=== PATIENT | male | born 1940 | race Caucasian/White ===

== ENCOUNTER → 2016-05-29 | Outpatient (CLI) | payer MEDICARE, OTHER ==
[2016-05-29 12:33] LABS: ANION GAP 9 (5-19); BLOOD UREA NITROGEN 15 mg/dL (7-20); CALCIUM 9.6 mg/dL (8.4-10.2); CARBON DIOXIDE 28 mmol/L (22-30); CHLORIDE 98 mmol/L (98-107); CREATININE RESULT 1.26 mg/dL (0.52-1.25); GLUCOSE 98 mg/dL (75-110); POTASSIUM 5.4 mmol/L (3.6-5.0); SODIUM 134.9 mmol/L (137-145)
== END ==
LOC: OD 11:00
PROVIDERS: ATTEND Physician Assistant
DX: E87.5 Hyperkalemia (principal)
CPT/HCPCS: 36415; 80048

== ENCOUNTER → 2016-06-04 | Outpatient (CLI) | payer MEDICARE, OTHER ==
[2016-06-04 16:05] LABS: ANION GAP 10 (5-19); BLOOD UREA NITROGEN 18 mg/dL (7-20); CARBON DIOXIDE 29 mmol/L (22-30); CHLORIDE 100 mmol/L (98-107); CREATININE RESULT 1.09 mg/dL (0.52-1.25); GLUCOSE 107 mg/dL (75-110); POTASSIUM 4.5 mmol/L (3.6-5.0); SODIUM 139.2 mmol/L (137-145)
== END ==
LOC: OD 14:58
PROVIDERS: ATTEND Physician Assistant
DX: E87.5 Hyperkalemia (principal)
CPT/HCPCS: 36415; 80048

== ENCOUNTER → 2016-08-29 | Outpatient (CLI) | payer MEDICARE, OTHER ==
[2016-08-29 12:20] LABS: ANION GAP 12 (5-19); BLOOD UREA NITROGEN 17 mg/dL (7-20); CALCIUM 9.6 mg/dL (8.4-10.2); CARBON DIOXIDE 23 mmol/L (22-30); CHLORIDE 102 mmol/L (98-107); CREATININE RESULT 1.14 mg/dL (0.52-1.25); GLUCOSE 106 mg/dL (75-110); POTASSIUM 4.9 mmol/L (3.6-5.0); SODIUM 136.6 mmol/L (137-145)
== END ==
LOC: OD 11:12
PROVIDERS: ATTEND Physician Assistant
DX: E87.5 Hyperkalemia (principal)
CPT/HCPCS: 36415; 80048

== ENCOUNTER 2017-08-21 21:37 | Inpatient (IN) | payer MEDICARE, OTHER ==
[2017-08-21 22:12] LABS: ABSOLUTE BASOPHILS # (AUTO) 0.1 10^3/uL (0.0-0.2); ABSOLUTE EOSINOPHILS # (AUTO) 0.5 10^3/uL (0.0-0.6); ABSOLUTE MONOCYTES (AUTO) 1.1 10^3/uL (0.1-1.4); BASOPHILS % (AUTO) 0.8 % (0-2); EOSINOPHILS % (AUTO) 4.4 % (0-6); HEMOGLOBIN 10.5 g/dL (13.5-17.0); LYMPHOCYTES % (AUTO) 18.9 % (13-45); MEAN CORPUSCULAR HEMOGLOBIN 33.2 pg (27.0-33.4); MEAN CORPUSCULAR HGB CONC 33.8 g/dL (32.0-36.0); MEAN CORPUSCULAR VOLUME 98 fl (80-97); MONOCYTES % (AUTO) 10.1 % (3-13); PLATELET COUNT 131 10^3/uL (150-450); RED BLOOD COUNT 3.16 10^6/uL (4.35-5.55); RED CELL DISTRIBUTION WIDTH 14.9 % (11.5-14.0); SEGMENTED NEUTROPHILS % (AUTO) 65.8 % (42-78); TOTAL CELLS COUNTED % (AUTO) 100 %; WHITE BLOOD COUNT 10.6 10^3/uL (4.0-10.5)
[2017-08-21 22:28] LABS: ALANINE AMINOTRANSFERASE 40 U/L (21-72); ALBUMIN 3.9 g/dL (3.5-5.0); ALKALINE PHOSPHATASE 43 U/L (38-126); ANION GAP 13 (5-19); ASPARTATE AMINO TRANSFERASE 40 U/L (17-59); BILIRUBIN,DIRECT 0.2 mg/dL (0.0-0.4); BILIRUBIN,TOTAL 0.4 mg/dL (0.2-1.3); BLOOD UREA NITROGEN 12 mg/dL (7-20); CARBON DIOXIDE 23 mmol/L (22-30); CHLORIDE 103 mmol/L (98-107); GLUCOSE 84 mg/dL (75-110); POTASSIUM 4.7 mmol/L (3.6-5.0); SODIUM 138.6 mmol/L (137-145); TOTAL PROTEIN 6.2 g/dL (6.3-8.2)
[2017-08-21] MEDS ORDERED: MIDAZOLAM 2 MG/2 ML INJ ONE ×2 (22:31→22:32)
[2017-08-21] MEDS ORDERED: DIPHENHYDRAMINE HCL 50 MG/ML VIAL ONE (22:31)
[2017-08-21] MEDS ORDERED: NALOXONE HCL INJ/PF 0.4 MG/1 ML SDV ONE (22:31)
[2017-08-21] MEDS ORDERED: EPINEPHRINE INJ 1 MG/10 ML DISP.SYRIN ONE ×2 (22:32→22:47)
[2017-08-21] MEDS ORDERED: FLUMAZENIL INJ 0.5 MG/5 ML VIAL ONE (22:32)
[2017-08-21] MEDS ORDERED: GLUCAGON,HUMAN RECOMB 1 MG INJ ONE (22:32)
[2017-08-21] MEDS ORDERED: FENTANYL CITRATE INJ/PF 100 MCG/2 ML AMPUL ONE (22:32)
[2017-08-21] MEDS ORDERED: NORMAL SALINE 1000 ML 500 ML IV ONE (22:38)
--- NOTE | 2017-08-21 23:33 | ER Document Report ---
ED General - General Chief Complaint: Rectal Bleeding Stated Complaint: BLOOD IN STOOL Time Seen by Provider: 08/21/17 22:37 TRAVEL OUTSIDE OF THE [place] IN LAST 30 DAYS: No - HPI Notes: 76-year-old male who presents on referral from his GI doctor for rectal bleeding. Of note, patient had a scheduled colonoscopy done this morning. He had possibly some type of polyp removal. This evening began to have 3 episodes of red blood in the toilet. [place] somewhat dizzy and lightheaded. Some mild mid abdominal pain. Nonradiating. Gradual onset. Sent in by his GI doctor to be "scope" and undergo colonoscopy in the ED and then be admitted. No other modifying factors, no other associated symptoms, no other provocative or palliative factors. - Related Data Allergies/Adverse Reactions: pneumococcal vaccine [Pneumococcal Vaccine] Allergy (Verified 03/02/14 16:28) RASH lisinopril [Lisinopril] Adverse Reaction (Intermediate, Verified 03/02/14 16:28) constant cough lorazepam [From Ativan] Adverse Reaction (Verified 02/02/16 21:07) Past Medical History - Social History Smoking Status: Never Smoker Chew tobacco use (# tins/day): No Frequency of alcohol use: Heavy Drug Abuse: None Family History: Reviewed & Not Pertinent Patient has suicidal ideation: No Patient has homicidal ideation: No - Past Medical History Cardiac Medical History: Reports: Hx Hypercholesterolemia - takes meds, Hx Hypertension - 35 yrs-takes meds Denies: Hx Atrial Fibrillation, Hx Congestive Heart Failure, Hx Coronary Artery Disease, Hx Heart Attack, Hx Peripheral Vascular Disease, Hx Heart Murmur Pulmonary Medical History: Denies: Hx COPD Neurological Medical History: Denies: Hx Cerebrovascular Accident, Hx Seizures Endocrine Medical History: Denies: Hx Diabetes Mellitus Type 1, Hx Diabetes Mellitus Type 2 Renal/ Medical History: Denies: Hx Benign Prostatic Hyperplasia, Hx End Stage Renal Disease, Hx Kidney Stones, Hx Peritoneal Dialysis Malignancy Medical History: Reports Hx Colorectal Cancer, Denies Hx Leukemia GI Medical History: Reports: Hx Gastroesophageal Reflux Disease - 15 yrs-takes Nexium, Hx Ulcer - Dx'ed with EGD > 3 years. Denies: Hx Crohn's Disease, Hx Hepatitis, Hx Hiatal Hernia, Hx Irritable Bowel, Hx Liver Failure, Hx Pancreatitis Musculoskeltal Medical History: Reports Hx Arthritis, Denies Hx Fibromyalgia, Denies Hx Multiple Sclerosis, Denies Hx Muscular Dystrophy Psychiatric Medical History: Reports: Hx Depression - Anxiety Denies: Hx Bipolar Disorder, Hx Dementia, Hx Post Traumatic Stress Disorder, Hx Schizophrenia Traumatic Medical History: Reports: Hx Fractures - LT leg as a child Infectious Medical History: Denies: Hx Hepatitis, Hx HIV Past Surgical History: Reports: Hx Appendectomy, Hx Bowel Surgery - colon resection , Hx Orthopedic Surgery - right knee. Denies: Hx Cholecystectomy, Hx Colostomy, Hx Coronary Artery Bypass Graft, Hx Gastric Bypass Surgery, Hx Herniorrhaphy, Hx Open Heart Surgery, Hx Pacemaker, Hx Tonsillectomy - Immunizations Immunizations up to date: Yes Hx Diphtheria, Pertussis, Tetanus Vaccination: Yes Hx Pneumococcal Vaccination: 03/31/07 Review of Systems - Review of Systems Notes: Review of systems as in the history of present illness, otherwise negative. Physical Exam - Vital signs Vitals: Pulse Resp BP Pulse Ox 64 10 L 131/56 H 99 08/21/17 23:05 08/21/17 23:05 08/21/17 23:05 08/21/17 23:05 - Notes Notes: General: Well developed . HEENT: Normocephalic, atraumatic. Pupils equal round reactive to light. No JVD. Chest: No trauma. Respiratory: Good air exchange, normal excursion. Cardiac: Regular rhythm. No murmurs or gallops. Abdomen: Soft, benign. Nondistended. Nontender. Back: No asymmetry or gross abnormality. Motor: Grossly normal power and tone. Neurologic: Alert, nonfocal. Cranial nerves II-12 are intact. Sensation intact. Vascular: Well perfused. Normal peripheral pulses. Skin: No petechiae or purpura. Course - Re-evaluation Re-evalutation: 08/21/17 23:32 I will email with the after mentioned symptoms. Certainly increase risk of critical GI bleed. He is not anticoagulated, stopped his antiplatelet agents 2 days before the procedure. We will proceed with basic laboratory evaluation, GI to perform bedside colonoscopy. 08/22/17 01:19 Labs reviewed, hemoglobin is mildly depressed. CBC is otherwise normal. Chemistries unremarkable. Patient underwent colonoscopy with control of bleeding. Blood was ordered by the GI doctor. Patient will be admitted by Dr. Steve for continued observation. - Vital Signs Vital signs: Temp Pulse Resp BP Pulse Ox 68 18 151/78 H 100 08/22/17 00:35 08/22/17 00:35 08/22/17 00:35 08/22/17 00:35 - Laboratory Result Diagrams: 08/21/17 21:57 08/21/17 21:57 Laboratory results interpreted by me: 08/21/17 08/21/17 08/21/17 21:57 21:57 21:57 WBC 10.6 H RBC 3.16 L Hgb 10.5 L Hct 31.0 L MCV 98 H RDW 14.9 H Plt Count 131 L Total Protein 6.2 L Crossmatch See Detail Discharge - Discharge Clinical Impression: GI bleed Qualifiers: GI bleed type/associated pathology: unspecified gastrointestinal hemorrhage type Qualified Code(s): K92.2 - Gastrointestinal hemorrhage, unspecified Condition: Serious Disposition: ADMITTED OBSERVATION Unit Admitted: ICU Referrals: IRVING STVEE MD [Primary Care Provider] - Follow up as needed
--- NOTE | 2017-08-22 01:07 | PDOC H&P ---
History of Present Illness Admission Date/PCP: IRVING STEVE MD History of Present Illness: BHARAT WALLACE JR is a 76 year old male patient was admitted to the emergency room with acute GI bleed. He had a colonoscopy this morning with removal of polyps from the cecum, ascending colon, transverse and the descending colon. He had 3 episodes of large amount of blood per rectum at home. He denies abdominal pain. He was on Plavix but was discontinued 5 days ago the patient also stopped his aspirin 5 days ago against advice. He was advised to use regular dose aspirin postoperatively today. His blood pressure was 110/70 upon presentation with a heart rate of 72. He was not in any discomfort. He underwent emergency colonoscopy in the emergency room with clipping Endo Clip in of the post polypectomy ulcer in the cecum, ascending colon and the transverse colon. There was no active bleeding at the end of the procedure. He became hypotensive during the procedure with his systolic blood pressures in the 80s. He also had a lot of blood in his colon and was still oozing from the cecal polypectomy site. He was given 2 units of blood urgently. Past Medical History Past Medical History: Reflux disease, hypertension, osteoarthritis, colon cancer in a polyp peduncle, ischemic colitis, hyperlipidemia, short segment Vallejo's esophagus, C. difficile colitis, coronary artery disease with stent placement in January 2016 , Cardiac Medical History: Reports: Hyperlipidema - takes meds, Hypertension - 35 yrs-takes meds Denies: Atrial Fibrillation, Congestive Heart Failure, Coronary Artery Disease, Myocardial Infarction, Peripheral Vascular Disease, Heart Murmur Pulmonary Medical History: Denies: Chronic Obstructive Pulmonary Disease (COPD) Neurological Medical History: Denies: Seizures Endocrine Medical History: Denies: Diabetes Mellitus Type 1, Diabetes Mellitus Type 2 Renal/ Medical History: Denies: End Stage Renal Disease Malignancy Medical History: Reports: Colorectal Cancer Denies: Breast Cancer, Cervical Cancer, Leukemia, Ovarian Cancer GI Medical History: Reports: Gastroesophageal Reflux Disease - 15 yrs-takes Nexium Denies: Crohn's Disease, Hepatitis, Hiatal Hernia Musculoskeltal Medical History: Reports: Arthritis Denies: Fibromyalgia Psychiatric Medical History: Reports: Depression - Anxiety Denies: Bipolar Disorder, Dementia, Post Traumatic Stress Disorder Hematology: Reports: Anemia - PRBC's x 2 units approx 12 years ago post " routine colonoscopy" Denies: Hemophilia, Sickle Cell Disease Infectious Medical History: Denies: HIV Past Surgical History Past Surgical History: Multiple colonoscopies including one today, left colectomy 1999, multiple EGDs, cataract surgery, coronary stent placement January 2016, left knee replacement Past Surgical History: Reports: Appendectomy, Orthopedic Surgery - right knee Denies: Cholecystectomy, Colostomy, Coronary Artery Bypass Graft, Gastric Bypass Surgery, Herniorrhaphy, Pacemaker, Tonsillectomy Social History Smoking Status: Never Smoker Frequency of Alcohol Use: Rare Hx Recreational Drug Use: No Drugs: None Hx Prescription Drug Abuse: No Family History Family History: Reviewed & Not Pertinent Parental Family History Reviewed: No Children Family History Reviewed: NA Sibling(s) Family History Reviewed.: NA Medication/Allergy Home Medications: Atenolol 100 mg PO BID 11/13/12 Losartan Potassium [Cozaar 100 mg Tablet] 100 mg PO QAM 03/02/14 Citalopram Hydrobromide [Celexa] 40 mg PO QAM 08/29/14 Esomeprazole Magnesium [Nexium] 40 mg PO QAM 08/29/14 Fexofenadine HCl [Roxana] 180 mg PO QAM 08/29/14 Trazodone HCl [Desyrel] 100 mg PO QHS 08/29/14 Simvastatin [Zocor 20 mg Tablet] 20 mg PO QPM 01/15/16 Aspirin [Aspirin 325 mg Tablet] 325 mg PO DAILY #0 tablet 01/31/16 Oxycodone HCl [Oxy-Ir 5 mg Tablet] 5 mg PO Q6HP PRN #0 tablet 01/31/16 Allergies/Adverse Reactions: pneumococcal vaccine [Pneumococcal Vaccine] Allergy (Verified 03/02/14 16:28) RASH lisinopril [Lisinopril] Adverse Reaction (Intermediate, Verified 03/02/14 16:28) constant cough lorazepam [From Ativan] Adverse Reaction (Verified 02/02/16 21:07) Review of Systems All systems: reviewed and no additional remarkable complaints except as stated Physical Exam Vital Signs: General: Patient is alert and looks well. HEENT: There is no pallor or jaundice. PERRLA. Oropharynx normal Respiratory: No chest deformity. No respiratory distress. Chest wall palpitation was unremarkable. Breath sounds were normal Cardiovascular: Heart sounds 1 and 2 normal with no murmurs. Abdominal: Not distended. Soft and nontender. Liver and spleen not palpable. No ascites demonstrated. Bowel sounds active. Rectal examination was deferred. Extremities: No edema Neurological: Alert and oriented x4. Grossly nonfocal. Normal speech Skin: No significant rash Psychological: Normal affect Results Laboratory Results: 08/21/17 21:57 08/21/17 21:57 08/21/17 08/21/17 08/21/17 21:57 21:57 21:57 WBC 10.6 H RBC 3.16 L Hgb 10.5 L Hct 31.0 L MCV 98 H MCH 33.2 MCHC 33.8 RDW 14.9 H Plt Count 131 L Seg Neutrophils % 65.8 Lymphocytes % 18.9 Monocytes % 10.1 Eosinophils % 4.4 Basophils % 0.8 Absolute Neutrophils 7.0 Absolute Lymphocytes 2.0 Absolute Monocytes 1.1 Absolute Eosinophils 0.5 Absolute Basophils 0.1 Sodium 138.6 Potassium 4.7 Chloride 103 Carbon Dioxide 23 Anion Gap 13 BUN 12 Creatinine 1.19 Est GFR ( Amer) > 60 Est GFR (Non-Af Amer) > 60 Glucose 84 Calcium 9.0 Total Bilirubin 0.4 AST 40 ALT 40 Alkaline Phosphatase 43 Total Protein 6.2 L Albumin 3.9 Lipase 117.0 Blood Type A POSITIVE Antibody Screen NEGATIVE 08/21/17 21:57 Troponin I < 0.012 Assessment & Plan - Diagnosis (1) Acute GI hemorrhage Is this a current diagnosis for this admission?: Yes Plan: Patient bled from his polypectomy ulcers and the bleeding was controlled while in the emergency room. He will be admitted to the hospital and observe for the next 36-48 hours. His H&H will be followed and further endoscopic management may be needed. I will keep him on a baby aspirin for now and resume his Plavix in 4-5 days. The risk of bleeding from Plavix outweigh the benefits at this time (2) Colon polyp Is this a current diagnosis for this admission?: No (3) Coronary artery disease Is this a current diagnosis for this admission?: Yes
[2017-08-22] MEDS ORDERED: IPRATROPIUM/ALBUTEROL 0.5-2.5 MG/3 ML AMPUL NEB PRN (01:14)
[2017-08-22] MEDS ORDERED: OXYCODONE-ACETAMINOPHEN 5-325 MG TABLET PO PRN (01:14)
[2017-08-22] MEDS ORDERED: ACETAMINOPHEN 325 MG TABLET PO PRN (01:14)
[2017-08-22] MEDS ORDERED: NORMAL SALINE 1000 ML 1,000 ML IV PRN (01:14)
[2017-08-22] MEDS ORDERED: GLUCAGON,HUMAN RECOMB 1 MG INJ IM PRN (01:19)
[2017-08-22] MEDS ORDERED: DEXTROSE 40% GEL 15 GM TUBE PO PRN ×2 (01:19)
[2017-08-22] MEDS ORDERED: INSULIN LISPRO 100 UNIT/ML 3 ML VIAL SUBCUT PRN (01:19)
[2017-08-22] MEDS ORDERED: DEXTROSE 50%-WATER 25 GM/50 ML DISP.SYRIN IV PRN ×2 (01:19)
[2017-08-22 01:49] LABS: ABSOLUTE BASOPHILS # (AUTO) 0.1 10^3/uL (0.0-0.2); ABSOLUTE EOSINOPHILS # (AUTO) 0.4 10^3/uL (0.0-0.6); ABSOLUTE LYMPHOCYTES (AUTO) 1.1 10^3/uL (0.5-4.7); ABSOLUTE MONOCYTES (AUTO) 0.9 10^3/uL (0.1-1.4); ABSOLUTE NEUT (AUTO) 7.4 10^3/uL (1.7-8.2); BASOPHILS % (AUTO) 0.5 % (0-2); EOSINOPHILS % (AUTO) 3.8 % (0-6); HEMATOCRIT 29.2 % (37.9-51.0); LYMPHOCYTES % (AUTO) 11.6 % (13-45); MEAN CORPUSCULAR HEMOGLOBIN 32.7 pg (27.0-33.4); MEAN CORPUSCULAR HGB CONC 34.3 g/dL (32.0-36.0); MEAN CORPUSCULAR VOLUME 95 fl (80-97); PLATELET COUNT 104 10^3/uL (150-450); RED BLOOD COUNT 3.07 10^6/uL (4.35-5.55); RED CELL DISTRIBUTION WIDTH 15.4 % (11.5-14.0); SEGMENTED NEUTROPHILS % (AUTO) 75.1 % (42-78); TOTAL CELLS COUNTED % (AUTO) 100 %; WHITE BLOOD COUNT 9.9 10^3/uL (4.0-10.5)
[2017-08-22] MEDS: LANSOPRAZOLE 15 MG TAB.RAP.DR PO SCH ×2 (05:44→17:05)
[2017-08-22 05:47] LABS: HEMATOCRIT 29.2 % (37.9-51.0); MEAN CORPUSCULAR HEMOGLOBIN 32.7 pg (27.0-33.4); MEAN CORPUSCULAR HGB CONC 34.3 g/dL (32.0-36.0); MEAN CORPUSCULAR VOLUME 96 fl (80-97); PLATELET COUNT 103 10^3/uL (150-450); RED BLOOD COUNT 3.06 10^6/uL (4.35-5.55); RED CELL DISTRIBUTION WIDTH 15.7 % (11.5-14.0); WHITE BLOOD COUNT 11.6 10^3/uL (4.0-10.5)
--- NOTE | 2017-08-22 07:20 | EKG REPORT ---
SEVERITY:- BORDERLINE ECG - SINUS RHYTHM BORDERLINE PROLONGED QT INTERVAL : Confirmed by: Satish Darby MD 22-Aug-2017 07:19:43
[2017-08-22] MEDS ORDERED: METOPROLOL SUCCINATE 50 MG TAB.SR.24H PO SCH (10:00)
--- NOTE | 2017-08-22 10:10 | OPERATIVE REPORT E ---
Operative Report NAME: BHARAT WALLACE : 1940 AGE: 76Y DATE OF SURGERY: 08/22/2017 ROOM: 314 PREOPERATIVE DIAGNOSIS: Acute rectal bleeding post colonoscopy. POSTOPERATIVE DIAGNOSIS: Postpolypectomy ulcers in the cecum, ascending, and the transverse colon. OPERATION: Colonoscopy with epinephrine injection and Endoclip placement. SURGEON: BLANKA HOROWITZ M.D. MEDICATION: Versed 2 mg, fentanyl 100 mcg IV push. TISSUE REMOVED OR ALTERED: None. PROCEDURE: After informed consent obtained from the patient, conscious sedation was achieved. The colonoscope was inserted into the rectum and advanced with some difficulty to the cecum. The patient has a tortuous and redundant colon. A 1-1.5 cm ulcer was noted in the cecum with large clots and oozing of blood. The clots were removed and there ulcer bed was injected with epinephrine 1:10,000, mixed half and half with normal saline. The ulcer was then clipped with five Endo-clips. Another 6 mm ulcer was noted in the proximal ascending colon with no active bleeding. This was clipped with two Endo-clips. A smaller ulcer was clipped once in the transverse colon. There was a large amount of blood and clots in the right side of the colon and some scattered over the rest of the colon. The patient's blood pressure went down to towards the end of the procedure to a systolic in the 80s. He was resuscitated with IV fluids and *------* transfusion. He received 1 unit of blood with a good response of his blood pressure postoperatively. He otherwise tolerated the procedure well. PLAN: We will observe for the next 36-48 hours in the hospital. He was started on mesalamine 800 mg twice a day. He will continue with a baby aspirin, but I will hold his Plavix for another 4-5 days. DICTATING PHYSICIAN: BLANKA HOROWITZ M.D. [id number] Y#: [id number] ID: [id number] JOB#: [id number] ACCT: [id number] cc:BLANKA HOROWITZ M.D. >
[2017-08-22] MEDS: MESALAMINE 400 MG CAPSULE.DR PO SCH ×2 (10:25→17:05)
[2017-08-22] MEDS ORDERED: LANSOPRAZOLE 30 MG TAB.RAP.DR PO ONE (12:00)
--- NOTE | 2017-08-22 12:31 | PDOC H&P ---
History of Present Illness Admission Date/PCP: 08/22/17 01:50 IRVING STEVE MD Patient complains of: GI bleed History of Present Illness: BHARAT WALLACE JR is a 76 year old male This is a 76-year-old male underwent for the colonoscopy by Dr. James and underwent for the polypectomy and patient started bleeding and patient at this point brought to the emergency department and Dr. James underwent for the emergency colonoscopy in the er And stop the bleeding Patient at this point Dr. James: Decided to admit for next 36hr continues to monitor When I saw the Patient on the floor and the patient is doing well patient's denied any abdominal pain no nausea no vomiting in patients wants to go home Patient at this point discussed with the Dr. James and suggest at least watch for next 24 hours Patient is currently not taking any blood pressure medications Aspirin and Plavix and currently hold the Plavix Dr. James suggested continues to baby aspirin Patient seen by the cardiology recently and suggest the patient's need of dual antiplatelet therapy to the main LAD lesion and patient had a stent placement in the [facility] in 2016 Again discussed with the patient is a noncompliance with the medications not taking the beta-nicolasa and not taking the statin Recent also have a PTSD and patient also currently see a neurology for the chronic back problems Also have a history of the cirrhosis and history of the alcoholism Patient's currently denied any chest pain denied any shortness of the breath Past Medical History Cardiac Medical History: Reports: Coronary Artery Disease, Hyperlipidema - takes meds, Hypertension - 35 yrs-takes meds Denies: Atrial Fibrillation, Congestive Heart Failure, Myocardial Infarction , Peripheral Vascular Disease, Heart Murmur Pulmonary Medical History: Reports: Chronic Obstructive Pulmonary Disease (COPD) Neurological Medical History: Denies: Seizures Endocrine Medical History: Denies: Diabetes Mellitus Type 1, Diabetes Mellitus Type 2 Renal/ Medical History: Reports: Chronic Kidney Disease Denies: End Stage Renal Disease Malignancy Medical History: Reports: Colorectal Cancer Denies: Breast Cancer, Cervical Cancer, Leukemia, Ovarian Cancer GI Medical History: Reports: Gastroesophageal Reflux Disease - 15 yrs-takes Nexium Denies: Crohn's Disease, Hepatitis, Hiatal Hernia Musculoskeltal Medical History: Reports: Arthritis Denies: Fibromyalgia Psychiatric Medical History: Reports: Depression - Anxiety Denies: Bipolar Disorder, Dementia, Post Traumatic Stress Disorder Hematology: Reports: Anemia - PRBC's x 2 units approx 12 years ago post " routine colonoscopy" Denies: Hemophilia, Sickle Cell Disease Infectious Medical History: Denies: HIV Past Surgical History Past Surgical History: Reports: Appendectomy, Orthopedic Surgery - right knee Denies: Cholecystectomy, Colostomy, Coronary Artery Bypass Graft, Gastric Bypass Surgery, Herniorrhaphy, Pacemaker, Tonsillectomy Social History Smoking Status: Never Smoker Frequency of Alcohol Use: Social Hx Recreational Drug Use: No Drugs: None Hx Prescription Drug Abuse: No - Advance Directive Resuscitation Status: Full Code Family History Family History: Reviewed & Not Pertinent Parental Family History Reviewed: Yes Children Family History Reviewed: Yes Sibling(s) Family History Reviewed.: Yes Medication/Allergy Home Medications: Aspirin [Aspirin EC] 81 mg PO DAILY 08/22/17 Atorvastatin Calcium [Lipitor 80 mg Tablet] 80 mg PO QHS 08/22/17 Budesonide/Formoterol Fumarate [Symbicort Hfa 160-4.5 Mcg Inhaler 6 gm] 2 puff IH Q12 08/22/17 Citalopram Hydrobromide [Celexa 40 mg Tablet] 60 mg PO DAILY 08/22/17 Clonazepam [Klonopin 2 mg Tablet] 2 mg PO DAILYP PRN 08/22/17 Clopidogrel Bisulfate [Clopidogrel] 75 mg PO DAILY 08/22/17 Ergocalciferol (Vitamin D2) [Drisdol 50,000 Unit (1.25MG) Capsule] 50,000 unit PO WE@1000 08/22/17 Fexofenadine HCl 180 mg PO DAILY 08/22/17 Gabapentin [Neurontin 300 mg Capsule] 300 mg PO Q8HP PRN 08/22/17 Metoprolol Succinate [Toprol XL 200 mg Tablet] 100 mg PO DAILY 08/22/17 Pantoprazole Sodium [Protonix] 40 mg PO DAILY 08/22/17 Polyvinyl Alcohol [Artificial Tears] 1 drop OU TID 08/22/17 Tiotropium Shobonier [Spiriva Respimat] 2 puff IH DAILY 08/22/17 Trazodone HCl [Desyrel] 100 mg PO HSP PRN 08/22/17 Allergies/Adverse Reactions: pneumococcal vaccine [Pneumococcal Vaccine] Allergy (Verified 03/02/14 16:28) RASH lisinopril [Lisinopril] Adverse Reaction (Intermediate, Verified 03/02/14 16:28) constant cough lorazepam [From Ativan] Adverse Reaction (Verified 02/02/16 21:07) Review of Systems Constitutional: ABSENT: chills, fever(s), headache(s), weight gain, weight loss Eyes: ABSENT: visual disturbances Ears: ABSENT: hearing changes Cardiovascular: ABSENT: chest pain, dyspnea on exertion, edema, orthropnea, palpitations Respiratory: ABSENT: cough, hemoptysis Gastrointestinal: ABSENT: abdominal pain, constipation, diarrhea, hematemesis, hematochezia, nausea, vomiting Genitourinary: ABSENT: dysuria, hematuria Musculoskeletal: ABSENT: joint swelling Integumentary: ABSENT: rash, wounds Neurological: ABSENT: abnormal gait, abnormal speech, confusion, dizziness, focal weakness, syncope Psychiatric: ABSENT: anxiety, depression, homidical ideation, suicidal ideation Endocrine: ABSENT: cold intolerance, heat intolerance, menstrual abnormalities, polydipsia, polyuria Hematologic/Lymphatic: ABSENT: easy bleeding, easy bruising, lymphadenopathy Physical Exam Vital Signs: Temp Pulse Resp BP Pulse Ox 97.9 F 90 16 178/90 H 98 08/22/17 07:22 08/22/17 11:47 08/22/17 11:47 08/22/17 08:19 08/22/17 07:22 Intake & Output 08/21/17 08/22/17 08/23/17 06:59 06:59 06:59 Intake Total 220 Output Total 500 Balance -280 Weight 120.5 kg General appearance: PRESENT: no acute distress, well-developed, well-nourished Head exam: PRESENT: atraumatic, normocephalic Eye exam: PRESENT: conjunctiva pink, EOMI, PERRLA. ABSENT: scleral icterus Ear exam: PRESENT: normal external ear exam Mouth exam: PRESENT: moist, tongue midline Neck exam: PRESENT: full ROM. ABSENT: carotid bruit, JVD, lymphadenopathy, thyromegaly Respiratory exam: PRESENT: clear to auscultation beatrice Cardiovascular exam: PRESENT: RRR. ABSENT: diastolic murmur, rubs, systolic murmur Pulses: PRESENT: normal dorsalis pedis pul, +2 pedal pulses bilateral Vascular exam: PRESENT: normal capillary refill GI/Abdominal exam: PRESENT: normal bowel sounds, soft. ABSENT: distended, guarding, mass, organolmegaly, rebound, tenderness Rectal exam: PRESENT: deferred Extremities exam: ABSENT: pedal edema Musculoskeletal exam: PRESENT: ambulatory Neurological exam: PRESENT: alert, awake, oriented to person, oriented to place , oriented to time, oriented to situation, CN II-XII grossly intact. ABSENT: motor sensory deficit Psychiatric exam: PRESENT: appropriate affect, normal mood. ABSENT: homicidal ideation, suicidal ideation Skin exam: PRESENT: dry, intact, warm. ABSENT: cyanosis, rash Results Laboratory Results: 08/22/17 04:30 08/22/17 04:30 WBC 11.6 H RBC 3.06 L Hgb 10.0 L Hct 29.2 L MCV 96 MCH 32.7 MCHC 34.3 RDW 15.7 H Plt Count 103 L Assessment & Plan - Diagnosis (1) Acute GI hemorrhage Is this a current diagnosis for this admission?: Yes Plan: Status post colonoscopy currently doing fair (2) Chronic obstructive pulmonary disease Qualifiers: COPD type: unspecified COPD Qualified Code(s): J44.9 - Chronic obstructive pulmonary disease, unspecified Is this a current diagnosis for this admission?: Yes Plan: Continues to current inhaler (3) Posttraumatic stress disorder Is this a current diagnosis for this admission?: Yes (4) Impaired fasting glucose Is this a current diagnosis for this admission?: Yes Plan: Patient's last hemoglobin A1c was 5.8 (5) Coronary artery disease Qualifiers: Coronary Disease-Associated Artery/Lesion type: unspecified vessel or lesion type Associated angina: without angina Is this a current diagnosis for this admission?: Yes Plan: Patient had a stent placement in [facility] 2016 and currently see a cardiology before the procedure of the [place] and suggest the dual antiplatelet therapy due to the LAD lesion currently hold the Plavix due to GI bleed continues to 81 mg baby aspirin and restart the Plavix next week (6) BPH (benign prostatic hypertrophy) with urinary obstruction Is this a current diagnosis for this admission?: Yes (7) HTN (hypertension) Qualifiers: Hypertension type: unspecified Qualified Code(s): I10 - Essential (primary ) hypertension Is this a current diagnosis for this admission?: Yes Plan: Patients will restart the beta-nicolasa (8) History of gastroesophageal reflux (GERD) Is this a current diagnosis for this admission?: Yes Plan: Continues to PPI (9) Chronic back pain Qualifiers: Back pain location: back pain in unspecified location Is this a current diagnosis for this admission?: Yes Plan: Patient's currently see a neurosurgery in taking the gabapentin (10) Chronic kidney disease Qualifiers: Chronic kidney disease stage: stage 2 (mild) Qualified Code(s): N18.2 - Chronic kidney disease, stage 2 (mild) Is this a current diagnosis for this admission?: Yes Plan: Currently stable - Time Time Spent: 30 to 50 Minutes Medications reviewed and adjusted accordingly: Yes Anticipated discharge: Home Within: within 24 hours - Inpatient Certification Medical Necessity: Need Close Monitoring Due to Risk of Patient Decompensation Post Hospital Care: D/C Customer Trainer Documentation - Plan Summary Plan Summary: Discussed with the patient about the all the hemoglobin result patient's very agitated to go home but as per discussed with Dr. James and suggest to keep it for the next 24 hours repeat the hemoglobin in the morning and if it remains stable patients can discharged home
[2017-08-22] MEDS ORDERED: GABAPENTIN 300 MG CAPSULE PO PRN (13:10)
[2017-08-22] MEDS ORDERED: CLONAZEPAM 1 MG TABLET PO PRN (13:48)
[2017-08-22 14:01] LABS: HEMATOCRIT 28.8 % (37.9-51.0); HEMOGLOBIN 9.7 g/dL (13.5-17.0); MEAN CORPUSCULAR HEMOGLOBIN 32.3 pg (27.0-33.4); MEAN CORPUSCULAR HGB CONC 33.8 g/dL (32.0-36.0); MEAN CORPUSCULAR VOLUME 96 fl (80-97); PLATELET COUNT 111 10^3/uL (150-450); RED BLOOD COUNT 3.01 10^6/uL (4.35-5.55); RED CELL DISTRIBUTION WIDTH 15.9 % (11.5-14.0); WHITE BLOOD COUNT 11.1 10^3/uL (4.0-10.5)
[2017-08-22] MEDS: POLYVINYL ALCOHOL 1.4% OPH SOLN 15 ML OU SCH (17:06)
[2017-08-22] MEDS: BUDESONIDE/FORMOTEROL 160-4.5 MCG 60 PUFF/6 GM MDI IH SCH (21:28)
[2017-08-22] MEDS ORDERED: ATORVASTATIN CALCIUM 80 MG TABLET PO SCH (22:00)
[2017-08-22] MEDS ORDERED: METOPROLOL SUCCINATE 50 MG TAB.SR.24H PO ONE (22:00)
[2017-08-22 22:22] LABS: HEMATOCRIT 27.9 % (37.9-51.0); HEMOGLOBIN 9.7 g/dL (13.5-17.0); MEAN CORPUSCULAR HGB CONC 34.7 g/dL (32.0-36.0); MEAN CORPUSCULAR VOLUME 95 fl (80-97); PLATELET COUNT 108 10^3/uL (150-450); RED BLOOD COUNT 2.93 10^6/uL (4.35-5.55); RED CELL DISTRIBUTION WIDTH 15.9 % (11.5-14.0); WHITE BLOOD COUNT 10.9 10^3/uL (4.0-10.5)
[2017-08-23 05:35] LABS: ANION GAP 7 (5-19); BLOOD UREA NITROGEN 9 mg/dL (7-20); CALCIUM 8.9 mg/dL (8.4-10.2); CARBON DIOXIDE 27 mmol/L (22-30); CHLORIDE 103 mmol/L (98-107); GLUCOSE 99 mg/dL (75-110); POTASSIUM 3.9 mmol/L (3.6-5.0); SODIUM 136.8 mmol/L (137-145)
[2017-08-23] MEDS: LANSOPRAZOLE 15 MG TAB.RAP.DR PO SCH (05:50)
[2017-08-23] MEDS ORDERED: LANSOPRAZOLE 30 MG TAB.RAP.DR PO SCH (06:00)
[2017-08-23] MEDS: MESALAMINE 400 MG CAPSULE.DR PO SCH (08:22)
[2017-08-23] MEDS: BUDESONIDE/FORMOTEROL 160-4.5 MCG 60 PUFF/6 GM MDI IH SCH (08:23)
[2017-08-23] MEDS: POLYVINYL ALCOHOL 1.4% OPH SOLN 15 ML OU SCH ×2 (08:24→12:48)
[2017-08-23] MEDS ORDERED: CITALOPRAM HYDROBROMIDE 60 MG PO SCH (10:00)
[2017-08-23] MEDS ORDERED: CITALOPRAM HYDROBROMIDE 20 MG TABLET PO SCH (10:00)
[2017-08-23] MEDS ORDERED: METOPROLOL SUCCINATE 100 MG PO SCH (10:00)
[2017-08-23] MEDS ORDERED: LORATADINE 10 MG TABLET PO SCH (10:00)
[2017-08-23] MEDS ORDERED: (PENDING PHARMACY ID) (Fexofenadine Hcl [Fexofenadine Hcl] 180 MG) PO SCH (10:00)
[2017-08-23] MEDS ORDERED: (PENDING PHARMACY ID) (Tiotropium Bromide [Spiriva Respimat] 2 PUFF) IH SCH (10:00)
[2017-08-23] MEDS ORDERED: ASPIRIN 81 MG TABLET, ENT COATED PO SCH (10:00)
[2017-08-23] MEDS ORDERED: METOPROLOL SUCCINATE 50 MG TAB.SR.24H PO SCH (10:00)
[2017-08-23 13:07] VITALS: BP 170/80
[2017-08-27] MEDS ORDERED: ERGOCALCIFEROL (VITAMIN D2) 50000 UNIT (1.25 MG) CAPSULE PO SCH (10:00)
== END 2017-08-23 15:10 | disposition left against medical advice (07) | DRG 920 ==
LOC: ER 21:37 → EH 08-22 01:50 → 3W 08-22 03:24
PROVIDERS: ADMIT Family Medicine; ATTEND Family Medicine
PROC: 0W3P8ZZ Control Bleeding in Gastrointestinal Tract, Via Natural or Artificial Opening Endoscopic (ICD-10-PCS; principal; 2017-08-22)
PROC: 3E0F73Z Introduction of Anti-inflammatory into Respiratory Tract, Via Natural or Artificial Opening (ICD-10-PCS; 2017-08-22)
PROC: 30233N1 Transfusion of Nonautologous Red Blood Cells into Peripheral Vein, Percutaneous Approach (ICD-10-PCS; 2017-08-22)
DX: K91.840 Postprocedural hemorrhage of a digestive system organ or structure following a digestive system procedure (principal); N13.8 Other obstructive and reflux uropathy; Y84.8 Other medical procedures as the cause of abnormal reaction of the patient, or of later complication, without mention of misadventure at the time of the procedure; I25.10 Atherosclerotic heart disease of native coronary artery without angina pectoris; E78.00 Pure hypercholesterolemia, unspecified; F43.10 Post-traumatic stress disorder, unspecified; F10.21 Alcohol dependence, in remission; K70.30 Alcoholic cirrhosis of liver without ascites; J44.9 Chronic obstructive pulmonary disease, unspecified; I12.9 Hypertensive chronic kidney disease with stage 1 through stage 4 chronic kidney disease, or unspecified chronic kidney disease; K21.9 Gastro-esophageal reflux disease without esophagitis; M19.90 Unspecified osteoarthritis, unspecified site; F32.9 Major depressive disorder, single episode, unspecified; F41.9 Anxiety disorder, unspecified; D64.9 Anemia, unspecified; R73.01 Impaired fasting glucose; N40.1 Benign prostatic hyperplasia with lower urinary tract symptoms; G89.29 Other chronic pain; M54.9 Dorsalgia, unspecified; N18.2 Chronic kidney disease, stage 2 (mild); K22.70 Barrett's esophagus without dysplasia; Z96.652 Presence of left artificial knee joint; Z91.14 Patient's other noncompliance with medication regimen; Z85.038 Personal history of other malignant neoplasm of large intestine; Z79.82 Long term (current) use of aspirin; Z79.899 Other long term (current) drug therapy; Z88.7 Allergy status to serum and vaccine; Z88.8 Allergy status to other drugs, medicaments and biological substances; Z95.5 Presence of coronary angioplasty implant and graft; Z90.49 Acquired absence of other specified parts of digestive tract
CPT/HCPCS: 36415; 36430; 45381; 45382; 80048; 80053; 82962; 83690; 84484; 85025; 85027; 86850; 86900; 86901; 86920; 93005; 93010; 99285; J0171; J1200; J1610; J2250; J2310; J3010; J3490; J7030; P9016

== ENCOUNTER → 2017-09-17 | Outpatient (CLI) | payer MEDICARE, OTHER ==
--- NOTE | 2017-09-17 15:42 | RADIOLOGY REPORT (SQ) ---
EXAM DESCRIPTION: LUMBAR SPINE W/FLEX/EXT COMPLETED DATE/TIME: 09/17/2017 10:29 am REASON FOR STUDY: LBP M54.5 LOW BACK PAIN COMPARISON: None. NUMBER OF VIEWS: 7 views TECHNIQUE: Lateral views were obtained in neutral, flexion, and extension. AP, both oblique, and co eric-down lateral views were also obtained. LIMITATIONS: None. FINDINGS: MINERALIZATION: Normal. SEGMENTATION: Normal. No transitional anatomy. ALIGNMENT: Levoscoliosis at L3-4. Minimal anterolisthesis of L4 on L5. FLEXION/EXTENSION: No instability. VERTEBRAE: Maintained height. No fracture or worrisome bone lesion. DISCS: All the lumbar disc spaces are narrowed to some degree. Marginal osteophytes are present at m ultiple levels. POSTERIOR ELEMENTS: Hypertrophic facet changes are present from L3-S1. HARDWARE: None in the spine. OTHER: No other significant finding. IMPRESSION: Scoliosis. Anterolisthesis of L4 on L5. Degenerative disc disease. Spondylosis. Face t arthropathy. No instability on flexion/ extension. TECHNICAL DOCUMENTATION: JOB ID: [id number]- All Rights Reserved Reading location - IP/workstation name: [email or web address]
== END ==
LOC: RAD 09:44
PROVIDERS: ATTEND Neurological Surgery
DX: M54.5 Low back pain (principal)
CPT/HCPCS: 72114

== ENCOUNTER → 2018-03-05 | Outpatient (CLI) | payer MEDICARE, OTHER ==
[2018-03-05 12:08] LABS: ABSOLUTE BASOPHILS # (AUTO) 0.1 10^3/uL (0.0-0.2); ABSOLUTE EOSINOPHILS # (AUTO) 0.3 10^3/uL (0.0-0.6); ABSOLUTE LYMPHOCYTES (AUTO) 1.2 10^3/uL (0.5-4.7); ABSOLUTE MONOCYTES (AUTO) 0.9 10^3/uL (0.1-1.4); BASOPHILS % (AUTO) 0.8 % (0-2); EOSINOPHILS % (AUTO) 3.4 % (0-6); HEMATOCRIT 39.5 % (37.9-51.0); HEMOGLOBIN 13.7 g/dL (13.5-17.0); MEAN CORPUSCULAR HEMOGLOBIN 34.5 pg (27.0-33.4); MEAN CORPUSCULAR HGB CONC 34.6 g/dL (32.0-36.0); MEAN CORPUSCULAR VOLUME 100 fl (80-97); MONOCYTES % (AUTO) 9.7 % (3-13); PLATELET COUNT 145 10^3/uL (150-450); RED BLOOD COUNT 3.97 10^6/uL (4.35-5.55); RED CELL DISTRIBUTION WIDTH 14.2 % (11.5-14.0); SEGMENTED NEUTROPHILS % (AUTO) 73.1 % (42-78); TOTAL CELLS COUNTED % (AUTO) 100 %; WHITE BLOOD COUNT 9.6 10^3/uL (4.0-10.5)
[2018-03-05 12:33] LABS: ANION GAP 7 (5-19); BLOOD UREA NITROGEN 19 mg/dL (7-20); CALCIUM 9.5 mg/dL (8.4-10.2); CARBON DIOXIDE 33 mmol/L (22-30); CHLORIDE 99 mmol/L (98-107); GLUCOSE 113 mg/dL (75-110); POTASSIUM 5.5 mmol/L (3.6-5.0)
== END ==
LOC: LAB 11:57
PROVIDERS: ATTEND Family Medicine
DX: E87.5 Hyperkalemia (principal); D72.829 Elevated white blood cell count, unspecified
CPT/HCPCS: 36415; 80048; 85025

== ENCOUNTER 2018-05-11 22:14 | Inpatient (IN) | payer MEDICARE, OTHER ==
[2018-05-11] MEDS ORDERED: IPRATROPIUM/ALBUTEROL 0.5-2.5 MG/3 ML AMPUL NEB ONE (22:29)
[2018-05-11] MEDS ORDERED: NORMAL SALINE 500 ML IV ONE ×2 (22:29→23:49)
[2018-05-11] MEDS ORDERED: ACETAMINOPHEN 325 MG TABLET PO ONE (22:33)
[2018-05-11] MEDS: MAGNESIUM SULFATE/D5W 1 GM/100 ML RTUPB IV SCH ×2 (22:46→23:58)
[2018-05-11 22:50] LABS: ABSOLUTE BASOPHILS # (AUTO) 0.1 10^3/uL (0.0-0.2); ABSOLUTE MONOCYTES (AUTO) 1.9 10^3/uL (0.1-1.4); ABSOLUTE NEUT (AUTO) 10.4 10^3/uL (1.7-8.2); BASOPHILS % (AUTO) 0.5 % (0-2); EOSINOPHILS % (AUTO) 0.3 % (0-6); HEMATOCRIT 37.8 % (37.9-51.0); HEMOGLOBIN 13.1 g/dL (13.5-17.0); MEAN CORPUSCULAR HEMOGLOBIN 33.6 pg (27.0-33.4); MEAN CORPUSCULAR HGB CONC 34.8 g/dL (32.0-36.0); MEAN CORPUSCULAR VOLUME 97 fl (80-97); MONOCYTES % (AUTO) 12.9 % (3-13); PLATELET COUNT 132 10^3/uL (150-450); RED BLOOD COUNT 3.91 10^6/uL (4.35-5.55); RED CELL DISTRIBUTION WIDTH 13.7 % (11.5-14.0); SEGMENTED NEUTROPHILS % (AUTO) 72.3 % (42-78); TOTAL CELLS COUNTED % (AUTO) 100 %; WHITE BLOOD COUNT 14.4 10^3/uL (4.0-10.5)
[2018-05-11 22:52] LABS: VENOUS BLOOD BASE EXCESS 0.9 mmol/L; VENOUS BLOOD HCO3 26.4 mmol/L (20-32); VENOUS BLOOD PCO2 45.2 mmHg (35-63); VENOUS BLOOD PH 7.38 (7.30-7.42)
[2018-05-11 23:13] LABS: ALANINE AMINOTRANSFERASE 45 U/L (21-72); ALBUMIN 4.7 g/dL (3.5-5.0); ALKALINE PHOSPHATASE 54 U/L (38-126); ANION GAP 11 (5-19); ASPARTATE AMINO TRANSFERASE 61 U/L (17-59); BILIRUBIN,DIRECT 0.2 mg/dL (0.0-0.4); BILIRUBIN,TOTAL 0.7 mg/dL (0.2-1.3); BLOOD UREA NITROGEN 17 mg/dL (7-20); CALCIUM 9.2 mg/dL (8.4-10.2); CARBON DIOXIDE 26 mmol/L (22-30); CHLORIDE 98 mmol/L (98-107); GLUCOSE 97 mg/dL (75-110); POTASSIUM 3.8 mmol/L (3.6-5.0); SODIUM 135.4 mmol/L (137-145); TOTAL PROTEIN 7.3 g/dL (6.3-8.2)
[2018-05-11 23:14] LABS: ALCOHOL < 10 mg/dL (NONE DETECTED)
--- NOTE | 2018-05-11 23:20 | EKG REPORT ---
SEVERITY:- ABNORMAL ECG - SINUS TACHYCARDIA ABNRM R PROG, CONSIDER ASMI OR LEAD PLACEMENT BORDERLINE T ABNORMALITIES, LATERAL LEADS : Confirmed by: Natalia Almaraz MD 11-May-2018 23:20:10
--- NOTE | 2018-05-11 23:26 | RADIOLOGY REPORT (SQ) ---
XR CHEST 1 VIEW HISTORY: dyspnea. COMPARISON: None. FINDINGS: The heart size is normal. There is atelectasis at the left lung base. No pleural effusions or pneumothorax is seen. No acute bony findings. IMPRESSION: No evidence of acute cardiopulmonary disease.
--- NOTE | 2018-05-11 23:27 | RADIOLOGY REPORT (SQ) ---
CT HEAD WITHOUT IV CONTRAST HISTORY: Headache. COMPARISON: None. TECHNIQUE: CT scan of the brain without IV contrast. This exam was performed according to our departmental dose-optimization program, which includes automated exposure control, adjustment of the mA and/or kV according to patient size and/or use of iterative reconstruction technique. FINDINGS: The ventricles, cisterns, and sulci are unremarkable. No focal white matter lesions are seen. No evidence of acute infarction, intracranial hemorrhage, extra-axial fluid collection, or midline shift. No air-fluid levels are seen in the paranasal sinuses to suggest acute sinusitis. No depressed skull fracture. IMPRESSION: No acute intracranial findings.
--- NOTE | 2018-05-11 23:48 | ER Document Report ---
ED General - General Chief Complaint: Shortness Of Breath Stated Complaint: DIFIICULTY BREATHING Time Seen by Provider: 05/11/18 22:21 Notes: Patient is a 77-year-old male presents with complaint of difficulty breathing. He was at a bar and started to feel unwell and dizzy and lightheaded and says he almost passed out but did not pass out. He did fall to the floor. He denies any injuries. He blood thinning medications. He has a history of coronary disease. He is a former smoker. He says even though he was at a bar he only had 2 beers and that was much early in the night. He says he is not intoxicated and drunk and thinks that has nothing to do with what happened tonight. No recent infections. He does have history of some COPD. Paramedics give him Solu-Medrol in route. They also given DuoNeb treatment. He still wheezing but says a DuoNeb treatment did help some. TRAVEL OUTSIDE OF THE [place] IN LAST 30 DAYS: No - Related Data Allergies/Adverse Reactions: pneumococcal vaccine [Pneumococcal Vaccine] Allergy (Verified 03/02/14 16:28) RASH lisinopril [Lisinopril] Adverse Reaction (Intermediate, Verified 03/02/14 16:28) constant cough lorazepam [From Ativan] Adverse Reaction (Verified 02/02/16 21:07) Past Medical History - Social History Smoking Status: Former Smoker Frequency of alcohol use: Occasional Drug Abuse: None Family History: Reviewed & Not Pertinent Patient has suicidal ideation: No Patient has homicidal ideation: No - Past Medical History Cardiac Medical History: Reports: Hx Coronary Artery Disease, Hx Hypercholesterolemia - takes meds, Hx Hypertension - 36 yrs-takes meds Denies: Hx Atrial Fibrillation, Hx Congestive Heart Failure, Hx Heart Attack, Hx Peripheral Vascular Disease, Hx Heart Murmur Pulmonary Medical History: Reports: Hx COPD Neurological Medical History: Denies: Hx Cerebrovascular Accident, Hx Seizures Endocrine Medical History: Denies: Hx Diabetes Mellitus Type 1, Hx Diabetes Mellitus Type 2 Renal/ Medical History: Denies: Hx Benign Prostatic Hyperplasia, Hx End Stage Renal Disease, Hx Kidney Stones, Hx Peritoneal Dialysis Malignancy Medical History: Reports Hx Colorectal Cancer, Denies Hx Leukemia GI Medical History: Reports: Hx Gastroesophageal Reflux Disease - 16 yrs-takes Nexium, Hx Ulcer - Dx'ed with EGD > 3 years. Denies: Hx Crohn's Disease, Hx Hepatitis, Hx Hiatal Hernia, Hx Irritable Bowel, Hx Liver Failure, Hx Pancreatitis Musculoskeletal Medical History: Reports Hx Arthritis, Denies Hx Fibromyalgia, Denies Hx Multiple Sclerosis, Denies Hx Muscular Dystrophy Psychiatric Medical History: Reports: Hx Depression - Anxiety Denies: Hx Bipolar Disorder, Hx Dementia, Hx Post Traumatic Stress Disorder, Hx Schizophrenia Traumatic Medical History: Reports: Hx Fractures - LT leg as a child Infectious Medical History: Denies: Hx Hepatitis, Hx HIV Past Surgical History: Reports: Hx Appendectomy, Hx Bowel Surgery - colon resection , Hx Orthopedic Surgery - right knee. Denies: Hx Cholecystectomy, Hx Colostomy, Hx Coronary Artery Bypass Graft, Hx Gastric Bypass Surgery, Hx Herniorrhaphy, Hx Open Heart Surgery, Hx Pacemaker, Hx Tonsillectomy - Immunizations Immunizations up to date: Yes Hx Diphtheria, Pertussis, Tetanus Vaccination: Yes Hx Pneumococcal Vaccination: 03/31/07 Review of Systems - Review of Systems Notes: My Normal Review Basic REVIEW OF SYSTEMS: CONSTITUTIONAL : Fever upon arrival. EENT: Denies eye, ear, throat, or mouth pain or symptoms. Denies nasal or sinus congestion. CARDIOVASCULAR: Denies chest pain. RESPIRATORY: Difficulty breathing and wheezing GASTROINTESTINAL: Denies abdominal pain. Denies nausea, vomiting, or diarrhea. GENITOURINARY: Denies difficulty urinating, painful urination, burning, frequency, or blood in urine. MUSCULOSKELETAL: Denies neck or back pain or joint pain or swelling. SKIN: Denies rash or skin lesions. NEUROLOGICAL: Denies altered mental status or loss of consciousness. Denies headache. Denies weakness or paralysis or loss of use of either side. Denies problems with gait or speech. Denies sensory or motor loss. ALL OTHER SYSTEMS REVIEWED AND NEGATIVE. Physical Exam - Vital signs Vitals: Pulse Ox 98 05/11/18 22:19 - Notes Notes: General Appearance: Well nourished, alert, cooperative, moderate acute distress, no obvious discomfort. Weak appearing Vitals: reviewed, See vital signs table. Head: no swelling or tenderness to the head Eyes: PERRL, EOMI, Conjuctiva clear Mouth: No decreasd moisture Throat: No tonsillar inflammation, No airway obstruction, No lymphadenopathy Neck: Supple, no neck tenderness, No thyromegaly Lungs: diffuse wheezing, No rales, No rhonci, mild accessory muscle use, good air exchange bilaterally. Heart: Tachycardic rate, Regular rythm, No murmur, no rub Abdomen: Normal BS, soft, No rigidity, No abdominal tenderness, No guarding, no rebound, no abdominal masses, no organomegaly Extremities: strength 5/5 in all extremities, good pulses in all extremities, no swelling or tenderness in the extremities, no edema. Skin: warm, dry, appropriate color, no rash Neuro: speech clear, oriented x 3, normal affect, responds appropriately to questions. Course - Re-evaluation Re-evalutation: 05/11/18 23:48 on reevaluation patient's lung pratt are clear and his wheezing is improved. He still slightly tachycardic. I am waiting the results of his blood work. 05/12/18 01:17 Patient's lung pratt continue to be him improved on auscultation however he still looks weak and little bit short of breath. I had the medicine tech standing and walking. His oxygen saturation went down to 80% and his heart rate went up to 134 and became very short of breath. I therefore placed him back on oxygen. I will give another breathing treatment. I do not feel that he will be able to go home tonight. His flu swab is negative however we have a lot of pus negative flu swabs and his symptoms with sudden onset of fever and congestion and difficulty breathing very well could be related to the flu and therefore I will treat him with Tamiflu. I will call his primary care doctor, Dr. Resendez, to discuss admission. 05/12/18 03:42 I did discuss case with Dr. Resendez who agrees to admit the patient. He recommends admission to the [facility]. Dictation of this chart was performed using voice recognition software; therefore, there may be some unintended grammatical errors. - Vital Signs Vital signs: Temp Pulse Resp BP Pulse Ox 97.4 F 21 H 165/74 H 94 05/12/18 02:07 05/12/18 01:03 05/12/18 01:03 05/12/18 01:03 - Laboratory Result Diagrams: 05/11/18 22:30 05/11/18 22:30 Laboratory results interpreted by me: 05/11/18 05/11/18 22:30 22:30 WBC 14.4 H RBC 3.91 L Hgb 13.1 L Hct 37.8 L MCH 33.6 H Plt Count 132 L Absolute Neutrophils 10.4 H Absolute Monocytes 1.9 H Sodium 135.4 L Creatinine 1.37 H Est GFR (Non-Af Amer) 51 L AST 61 H Discharge - Discharge Clinical Impression: Dyspnea Qualifiers: Dyspnea type: unspecified Qualified Code(s): R06.00 - Dyspnea, unspecified Fever Qualifiers: Fever type: unspecified Qualified Code(s): R50.9 - Fever, unspecified Condition: Stable Disposition: ADMITTED OBSERVATION Admitting Provider: Resendez Unit Admitted: [facility]
[2018-05-11 23:54] LABS: A TYPE INFLUENZA AG NEGATIVE (NEGATIVE); B INFLUENZA AG NEGATIVE (NEGATIVE)
[2018-05-12] MEDS ORDERED: ALBUTEROL SULFATE 0.083% NEB 2.5 MG/3 ML AMPUL NEB ONE (01:17)
[2018-05-12] MEDS ORDERED: OSELTAMIVIR PHOSPHATE 75 MG CAPSULE PO ONE (01:18)
[2018-05-12] MEDS ORDERED: ACETAMINOPHEN 325 MG TABLET PO PRN (01:23)
[2018-05-12] MEDS ORDERED: CEFEPIME 1 GM/D5W RTU 1 GM/50 ML RTUPB IV ONE (02:00)
[2018-05-12 02:45] LABS: CREATINE KINASE MB 10.2 ng/mL (<4.55); TROPONIN I 0.018 ng/mL
[2018-05-12] MEDS: NORMAL SALINE 1000 ML 1,000 ML IV PRN ×2 (02:50→23:32)
[2018-05-12] MEDS: IPRATROPIUM/ALBUTEROL 0.5-2.5 MG/3 ML AMPUL NEB SCH ×5 (04:32→20:50)
[2018-05-12] MEDS: METHYLPREDNISOLONE INJ 40 MG/1 ML SDV IV SCH ×3 (05:54→22:05)
[2018-05-12 07:35] LABS: TROPONIN I 0.02 ng/mL
[2018-05-12] MEDS ORDERED: (PENDING PHARMACY ID) (Trazodone Hcl [Desyrel] 100 MG) PO PRN (08:06)
[2018-05-12] MEDS ORDERED: TRAZODONE HCL 50 MG TABLET PO PRN (08:25)
--- NOTE | 2018-05-12 09:06 | PDOC H&P ---
History of Present Illness Admission Date/PCP: 05/12/18 01:31 IRVING STEVE MD Patient complains of: Difficulty in breathing History of Present Illness: BHARAT WALLACE JR is a 77 year old male 77-year-old male with a history of the COPD history of the coronary artery disease status post stent placement history of the impaired fasting glucose history of alcoholism and multiple other comorbidity was drinking at the bar yesterday and the patient suddenly feel pass out but did not pass out and patient's was brought to the emergency department with the patient initial workup included a head CT was negative but patient has significant wheezing and COPD acute exacerbations and ER physicians called to admit the patient's Patient is received IV Solu-Medrol and also the Tamiflu because of the flulike symptoms given the flu test is negative Patient's when I saw in the ER denied any chest pain Patient denied any smoking history Patient currently see the [facility] cardiology status post stent placement in 2016 Patient continues to drink alcohol every day Patient denied any headache Past Medical History Cardiac Medical History: Reports: Coronary Artery Disease, Hyperlipidema - takes meds, Hypertension - 36 yrs-takes meds Denies: Atrial Fibrillation, Congestive Heart Failure, Myocardial Infarction, Peripheral Vascular Disease, Heart Murmur Pulmonary Medical History: Reports: Chronic Obstructive Pulmonary Disease (COPD) Neurological Medical History: Denies: Seizures Endocrine Medical History: Denies: Diabetes Mellitus Type 1, Diabetes Mellitus Type 2 Renal/ Medical History: Denies: End Stage Renal Disease Malignancy Medical History: Reports: Colorectal Cancer Denies: Breast Cancer, Cervical Cancer, Leukemia, Ovarian Cancer GI Medical History: Reports: Gastroesophageal Reflux Disease - 16 yrs-takes Nexium Denies: Crohn's Disease, Hepatitis, Hiatal Hernia Musculoskeltal Medical History: Reports: Arthritis Denies: Fibromyalgia Psychiatric Medical History: Reports: Depression - Anxiety Denies: Bipolar Disorder, Dementia, Post Traumatic Stress Disorder Hematology: Reports: Anemia - PRBC's x 2 units approx 12 years ago post "routine colonoscopy" Denies: Hemophilia, Sickle Cell Disease Infectious Medical History: Denies: HIV Past Surgical History Past Surgical History: Reports: Appendectomy, Orthopedic Surgery - right knee Denies: Cholecystectomy, Colostomy, Coronary Artery Bypass Graft, Gastric Bypass Surgery, Herniorrhaphy, Pacemaker, Tonsillectomy Social History Smoking Status: Former Smoker Frequency of Alcohol Use: Social Hx Recreational Drug Use: No Drugs: None Hx Prescription Drug Abuse: No Family History Family History: Reviewed & Not Pertinent Parental Family History Reviewed: Yes Children Family History Reviewed: Yes Sibling(s) Family History Reviewed.: Yes Medication/Allergy Home Medications: Aspirin [Aspirin EC] 81 mg PO DAILY 08/22/17 Atorvastatin Calcium [Lipitor 80 mg Tablet] 80 mg PO QHS 08/22/17 Budesonide/Formoterol Fumarate [Symbicort Hfa 160-4.5 Mcg Inhaler 6 gm] 2 puff IH Q12 08/22/17 Citalopram Hydrobromide [Celexa 40 mg Tablet] 60 mg PO DAILY 08/22/17 Clonazepam [Klonopin 2 mg Tablet] 2 mg PO DAILY 08/22/17 Clopidogrel Bisulfate [Clopidogrel] 75 mg PO DAILY 08/22/17 Fexofenadine HCl 180 mg PO DAILY 08/22/17 Metoprolol Succinate [Toprol XL 200 mg Tablet] 100 mg PO DAILY 08/22/17 Pantoprazole Sodium [Protonix] 40 mg PO DAILY 08/22/17 Tiotropium [place] [Spiriva Respimat] 2 puff IH DAILY 08/22/17 Trazodone HCl [Desyrel] 100 mg PO HSP PRN 08/22/17 Allergies/Adverse Reactions: pneumococcal vaccine [Pneumococcal Vaccine] Allergy (Verified 03/02/14 16:28) RASH lisinopril [Lisinopril] Adverse Reaction (Intermediate, Verified 03/02/14 16:28) constant cough lorazepam [From Ativan] Adverse Reaction (Verified 02/02/16 21:07) Review of Systems Constitutional: PRESENT: chills, fever(s). ABSENT: headache(s), weight gain, weight loss Eyes: ABSENT: visual disturbances Ears: ABSENT: hearing changes Cardiovascular: ABSENT: chest pain, dyspnea on exertion, edema, orthropnea, palpitations Respiratory: PRESENT: cough, dyspnea. ABSENT: hemoptysis Gastrointestinal: ABSENT: abdominal pain, constipation, diarrhea, hematemesis, hematochezia, nausea, vomiting Genitourinary: ABSENT: dysuria, hematuria Musculoskeletal: ABSENT: joint swelling Integumentary: ABSENT: rash, wounds Neurological: ABSENT: abnormal gait, abnormal speech, confusion, dizziness, foca l weakness, syncope Psychiatric: ABSENT: anxiety, depression, homidical ideation, suicidal ideation Endocrine: ABSENT: cold intolerance, heat intolerance, menstrual abnormalities, polydipsia, polyuria Hematologic/Lymphatic: ABSENT: easy bleeding, easy bruising, lymphadenopathy Physical Exam Vital Signs: Temp Pulse Resp BP Pulse Ox 97.4 F 89 19 138/63 H 93 05/12/18 05:55 05/12/18 07:38 05/12/18 08:01 05/12/18 08:01 05/12/18 08:01 Intake & Output 05/11/18 05/12/18 05/13/18 06:59 06:59 06:59 Intake Total 1250 Balance 1250 Weight 117.934 kg General appearance: PRESENT: no acute distress, well-developed, well-nourished Head exam: PRESENT: atraumatic, normocephalic Eye exam: PRESENT: conjunctiva pink, EOMI, PERRLA. ABSENT: scleral icterus Ear exam: PRESENT: normal external ear exam Mouth exam: PRESENT: moist, tongue midline Neck exam: PRESENT: full ROM. ABSENT: carotid bruit, JVD, lymphadenopathy, thyromegaly Respiratory exam: PRESENT: wheezes Cardiovascular exam: PRESENT: RRR. ABSENT: diastolic murmur, rubs, systolic murmur Vascular exam: PRESENT: normal capillary refill GI/Abdominal exam: PRESENT: normal bowel sounds, soft. ABSENT: distended, g uarding, mass, organolmegaly, rebound, tenderness Rectal exam: PRESENT: deferred Musculoskeletal exam: PRESENT: ambulatory Neurological exam: PRESENT: alert, awake, oriented to person, oriented to place, oriented to time, oriented to situation, CN II-XII grossly intact. ABSENT: motor sensory deficit Psychiatric exam: PRESENT: appropriate affect, normal mood. ABSENT: homicidal ideation, suicidal ideation Skin exam: PRESENT: dry, intact, warm. ABSENT: cyanosis, rash Results Laboratory Results: 05/11/18 22:30 05/11/18 22:30 05/11/18 05/11/18 05/11/18 22:30 22:30 22:30 WBC 14.4 H RBC 3.91 L Hgb 13.1 L Hct 37.8 L MCV 97 MCH 33.6 H MCHC 34.8 RDW 13.7 Plt Count 132 L Seg Neutrophils % 72.3 Lymphocytes % 14.0 Monocytes % 12.9 Eosinophils % 0.3 Basophils % 0.5 Absolute Neutrophils 10.4 H Absolute Lymphocytes 2.0 Absolute Monocytes 1.9 H Absolute Eosinophils 0.0 Absolute Basophils 0.1 VBG pH 7.38 VBG pCO2 45.2 VBG HCO3 26.4 VBG Base Excess 0.9 Sodium 135.4 L Potassium 3.8 Chloride 98 Carbon Dioxide 26 Anion Gap 11 BUN 17 Creatinine 1.37 H Est GFR ( Amer) > 60 Est GFR (Non-Af Amer) 51 L Glucose 97 Calcium 9.2 Total Bilirubin 0.7 AST 61 H ALT 45 Alkaline Phosphatase 54 Total Protein 7.3 Albumin 4.7 05/11/18 05/12/18 05/12/18 22:30 02:00 02:00 Creatine Kinase 801 H CK-MB (CK-2) 10.20 H Troponin I 0.013 0.018 05/12/18 05/12/18 07:01 07:01 Creatine Kinase 609 H CK-MB (CK-2) 10.00 H Troponin I 0.020 Impressions: Chest X-Ray 05/11/18 22:28 IMPRESSION: No evidence of acute cardiopulmonary disease. Head CT 05/11/18 22:29 IMPRESSION: No acute intracranial findings. Assessment & Plan - Diagnosis (1) Dyspnea Qualifiers: Dyspnea type: unspecified Qualified Code(s): R06.00 - Dyspnea, unspecified Is this a current diagnosis for this admission?: Yes Plan: Most likely from COPD acute exacerbations (2) Fever Qualifiers: Fever type: unspecified Qualified Code(s): R50.9 - Fever, unspecified Is this a current diagnosis for this admission?: Yes Plan: The blood culture urine culture continues to Tamiflu (3) Alcohol abuse Is this a current diagnosis for this admission?: Yes Plan: Put the patient on alcohol withdrawal protocol (4) BPH (benign prostatic hypertrophy) with urinary obstruction Is this a current diagnosis for this admission?: Yes (5) Chronic back pain Is this a current diagnosis for this admission?: Yes (6) Chronic kidney disease Qualifiers: Chronic kidney disease stage: stage 2 (mild) Is this a current diagnosis for this admission?: Yes Plan: all stable (7) Chronic obstructive pulmonary disease Qualifiers: COPD type: unspecified COPD Is this a current diagnosis for this admission?: Yes Plan: With acute exacerbations We will start the patient on the Solu-Medrol DuoNeb respiratory treatment (8) Impaired fasting glucose Is this a current diagnosis for this admission?: Yes Plan: Since last hemoglobin A1c is less than 6 We will continue sliding scale while patient in the steroid (9) Posttraumatic stress disorder Is this a current diagnosis for this admission?: Yes (10) Coronary artery disease Qualifiers: Coronary Disease-Associated Artery/Lesion type: unspecified vessel or lesion type Is this a current diagnosis for this admission?: Yes Plan: Rule out acute coronary syndromes - Time Time Spent: 30 to 50 Minutes Medications reviewed and adjusted accordingly: Yes Anticipated discharge: Home Within: Other - Inpatient Certification Based on my medical assessment, after consideration of the patient's comorbidities, presenting symptoms, or acuity I expect that the services needed warrant INPATIENT care.: Yes I certify that my determination is in accordance with my understanding of Medicare's requirements for reasonable and necessary INPATIENT services [42 CFR 412.3e].: Yes Medical Necessity: Significant Comorbidiites Make Outpatient Treatment Too Risky, Need Close Monitoring Due to Risk of Patient Decompensation, Need for IV Antibiotics Post Hospital Care: D/C Tester [employer] Documentation - Plan Summary Plan Summary: Admitting IMCU See other MD orders
[2018-05-12] MEDS: CITALOPRAM HYDROBROMIDE 20 MG TABLET PO SCH (09:53)
[2018-05-12] MEDS: CLOPIDOGREL BISULFATE 75 MG TABLET PO SCH (09:54)
[2018-05-12] MEDS: THIAMINE HCL 100 MG TABLET PO SCH (09:54)
[2018-05-12] MEDS: LORATADINE 10 MG TABLET PO SCH (09:55)
[2018-05-12] MEDS: METOPROLOL SUCCINATE 50 MG TAB.SR.24H PO SCH (09:55)
[2018-05-12] MEDS: CLONAZEPAM 1 MG TABLET PO SCH (09:55)
[2018-05-12] MEDS: ASPIRIN 81 MG TABLET, ENT COATED PO SCH (09:55)
[2018-05-12] MEDS: OSELTAMIVIR PHOSPHATE 75 MG CAPSULE PO SCH ×2 (09:56→19:23)
[2018-05-12] MEDS: DOCUSATE SODIUM 100 MG CAPSULE PO SCH ×2 (09:56→19:23)
[2018-05-12] MEDS: ENOXAPARIN SODIUM INJ 40 MG/0.4 ML DISP.SYRIN SUBCUT SCH (09:57)
[2018-05-12] MEDS: CEFEPIME 1 GM/D5W RTU 1 GM/50 ML RTUPB IV SCH ×2 (09:57→22:06)
[2018-05-12] MEDS ORDERED: METOPROLOL SUCCINATE 100 MG PO SCH (10:00)
[2018-05-12] MEDS ORDERED: (PENDING PHARMACY ID) (Fexofenadine Hcl [Fexofenadine Hcl] 180 MG) PO SCH (10:00)
[2018-05-12] MEDS ORDERED: CITALOPRAM HYDROBROMIDE 60 MG PO SCH (10:00)
[2018-05-12] MEDS ORDERED: (PENDING PHARMACY ID) (Tiotropium Bromide [Spiriva Respimat] 2 PUFF) IH SCH (10:00)
[2018-05-12] MEDS: TIOTROPIUM BROMIDE DPI 5 CAP/KIT (18 MCG/CAP) IH SCH (10:33)
[2018-05-12] MEDS: BUDESONIDE/FORMOTEROL 160-4.5 MCG 60 PUFF/6 GM MDI IH SCH ×2 (10:34→22:12)
--- NOTE | 2018-05-12 12:34 | RADIOLOGY REPORT (SQ) ---
EXAM DESCRIPTION: CT CHEST WITHOUT COMPLETED DATE/TIME: 05/12/2018 12:19 pm REASON FOR STUDY: sob COMPARISON: 03/11/2014, 02/20/2011 CT chest TECHNIQUE: CT scan performed of the chest without intravenous contrast. Images reviewed with lung, soft tissue and bone windows. Reconstructed coronal and sagittal MPR images reviewed. All images st ored on PACS. All CT scanners at this facility use dose modulation, iterative reconstruction, and/or weight based d osing when appropriate to reduce radiation dose to as low as reasonably achievable (ALARA). [facility]: Dose Right [facility]: CareDose [facility]: Dose Right [facility]: Teradose 4D [facility]: [employer] RADIATION DOSE: CT Rad equipment meets quality standard of care and radiation dose reduction techniq ues were employed. CTDIvol: 20.1 mGy. DLP: 843 mGy-cm. mGy. LIMITATIONS: No technical limitations. FINDINGS: LUNGS AND PLEURA: No acute infiltrates. No pleural effusion. No calcific pleural plaque. Stable benign calcified and noncalcified granulomas in the periphery of the right and left lung, un changed from 02/20/2011. There is bandlike scarring at the right lung base on axial image 39 and coronal image 39. This is ne w compared to previous studies. HILAR AND MEDIASTINAL STRUCTURES: Calcified right hilar lymph nodes from old granulomatous disease. No worrisome mediastinal masses. Small hiatal hernia HEART AND VASCULAR STRUCTURES: No aneurysm. No pericardial effusion. Heavily calcified coronary art eries UPPER ABDOMEN: Fatty liver. Splenic granulomas. THYROID AND OTHER SOFT TISSUES: No masses. No adenopathy. BONES: Diffuse degenerative disc changes throughout the thoracic spine HARDWARE: None in the chest. OTHER: No other significant findings. IMPRESSION: NO SIGNIFICANT FINDING ON NON-CONTRASTED CHEST CT. TECHNICAL DOCUMENTATION: JOB ID: [id number] Quality ID # [id number]: Final reports with documentation of one or more dose reduction techniques (e.g., Au tomated exposure control, adjustment of the mA and/or kV according to patient size, use of iterative reconstruction technique) 2010 [employer]- All Rights Reserved Reading location - IP/workstation name: [email or web address]
[2018-05-12 14:05] LABS: CREATINE KINASE MB 17.3 ng/mL (<4.55); TROPONIN I 0.031 ng/mL
[2018-05-12] MEDS: AMLODIPINE BESYLATE 5 MG TABLET PO SCH (20:37)
[2018-05-12] MEDS: ATORVASTATIN CALCIUM 80 MG TABLET PO SCH (22:05)
[2018-05-12] MEDS: HYDRALAZINE HCL INJ/PF 20 MG/1 ML SDV IV PRN (22:06)
[2018-05-13] MEDS: IPRATROPIUM/ALBUTEROL 0.5-2.5 MG/3 ML AMPUL NEB SCH ×6 (00:17→20:54)
[2018-05-13] MEDS: LANSOPRAZOLE 30 MG TAB.RAP.DR PO SCH (05:26)
[2018-05-13] MEDS: METHYLPREDNISOLONE INJ 40 MG/1 ML SDV IV SCH (05:26)
[2018-05-13] MEDS: HYDRALAZINE HCL INJ/PF 20 MG/1 ML SDV IV PRN ×3 (07:36→23:52)
[2018-05-13 07:50] LABS: HEMATOCRIT 37.5 % (37.9-51.0); HEMOGLOBIN 12.9 g/dL (13.5-17.0); MEAN CORPUSCULAR HEMOGLOBIN 33.3 pg (27.0-33.4); MEAN CORPUSCULAR HGB CONC 34.3 g/dL (32.0-36.0); MEAN CORPUSCULAR VOLUME 97 fl (80-97); PLATELET COUNT 139 10^3/uL (150-450); RED BLOOD COUNT 3.87 10^6/uL (4.35-5.55); WHITE BLOOD COUNT 27.7 10^3/uL (4.0-10.5)
[2018-05-13 08:08] LABS: ALANINE AMINOTRANSFERASE 52 U/L (21-72); ALKALINE PHOSPHATASE 42 U/L (38-126); ANION GAP 8 (5-19); ASPARTATE AMINO TRANSFERASE 112 U/L (17-59); BILIRUBIN,DIRECT 0.2 mg/dL (0.0-0.4); BILIRUBIN,TOTAL 0.5 mg/dL (0.2-1.3); BLOOD UREA NITROGEN 23 mg/dL (7-20); CALCIUM 8.8 mg/dL (8.4-10.2); CARBON DIOXIDE 26 mmol/L (22-30); CHLORIDE 103 mmol/L (98-107); GLUCOSE 121 mg/dL (75-110); POTASSIUM 4.1 mmol/L (3.6-5.0); SODIUM 137.1 mmol/L (137-145); TOTAL PROTEIN 6.5 g/dL (6.3-8.2)
[2018-05-13 08:22] LABS: ABSOLUTE LYMPHOCYTES# (MANUAL) 1.1 10^3/uL (0.5-4.7); ABSOLUTE MONOCYTES # (MANUAL) 0.6 10^3/uL (0.1-1.4); BASOPHILS % (MANUAL) 0 % (0-2); EOSINOPHILS % (MANUAL) 0 % (0-6); LYMPHOCYTES % (MANUAL) 4 % (13-45); MONOCYTES % (MANUAL) 2 % (3-13); SEGMENTED NEUTROPHILS % (MAN) 94 % (42-78); TOTAL CELLS COUNTED 100
[2018-05-13 08:23] LABS: BURR CELLS SLIGHT; OVALOCYTES 1+; PLATELET COMMENT DECREASED; POIKILOCYTOSIS 1+
--- NOTE | 2018-05-13 08:40 | PDOC PROGRESS REPORT ---
Subjective Progress Note for:: 05/13/18 Subjective:: Patient is currently doing much better Patient is denied any chest pain to than any shortness of the breath Patients pretty much wants to go home does not matter whether a discharge or not discharge Patient's white count is elevated most likely related to the steroid but unable to tell about infectious versus steroid Patient have a no fever overnight Patient's culture is all negative Patient CT of the chest is all stable Reason For Visit: COPD ACUTE Physical Exam Vital Signs: Temp Pulse Resp BP Pulse Ox 98.2 F 85 18 191/80 H 97 05/13/18 07:30 05/13/18 07:30 05/13/18 07:30 05/13/18 07:30 05/13/18 07:30 Intake & Output 05/12/18 05/13/18 05/14/18 06:59 06:59 06:59 Intake Total 1250 1737 Output Total 1000 Balance 1250 737 Weight 122 kg 122.4 kg General appearance: PRESENT: no acute distress, well-developed, well-nourished Head exam: PRESENT: atraumatic, normocephalic Eye exam: PRESENT: conjunctiva pink, EOMI, PERRLA. ABSENT: scleral icterus Ear exam: PRESENT: normal external ear exam Mouth exam: PRESENT: moist, tongue midline Neck exam: PRESENT: full ROM. ABSENT: carotid bruit, JVD, lymphadenopathy, thyromegaly Respiratory exam: PRESENT: clear to auscultation beatrice Cardiovascular exam: PRESENT: RRR. ABSENT: diastolic murmur, rubs, systolic murmur Vascular exam: PRESENT: normal capillary refill GI/Abdominal exam: PRESENT: normal bowel sounds, soft. ABSENT: distended, guarding, mass, organolmegaly, rebound, tenderness Rectal exam: PRESENT: deferred Musculoskeletal exam: PRESENT: ambulatory Neurological exam: PRESENT: alert, awake, oriented to person, oriented to place, oriented to time, oriented to situation, CN II-XII grossly intact. ABSENT: motor sensory deficit Psychiatric exam: PRESENT: appropriate affect, normal mood. ABSENT: homicidal ideation, suicidal ideation Skin exam: PRESENT: dry, intact, warm. ABSENT: cyanosis, rash Results Laboratory Results: 05/13/18 07:08 05/13/18 07:08 05/13/18 05/13/18 07:08 07:08 WBC 27.7 H RBC 3.87 L Hgb 12.9 L Hct 37.5 L MCV 97 MCH 33.3 MCHC 34.3 RDW 14.0 Plt Count 139 L Seg Neutrophils % Not Reportable Lymphocytes % Not Reportable Monocytes % Not Reportable Eosinophils % Not Reportable Basophils % Not Reportable Absolute Neutrophils Not Reportable Absolute Lymphocytes Not Reportable Absolute Monocytes Not Reportable Absolute Eosinophils Not Reportable Absolute Basophils Not Reportable Sodium 137.1 Potassium 4.1 Chloride 103 Carbon Dioxide 26 Anion Gap 8 BUN 23 H Creatinine 1.14 Est GFR ( Amer) > 60 Est GFR (Non-Af Amer) > 60 Glucose 121 H Calcium 8.8 Total Bilirubin 0.5 AST 112 H ALT 52 Alkaline Phosphatase 42 Total Protein 6.5 Albumin 4.0 05/11/18 05/12/18 05/12/18 22:30 02:00 02:00 Creatine Kinase 801 H CK-MB (CK-2) 10.20 H Troponin I 0.013 0.018 05/12/18 05/12/18 05/12/18 07:01 07:01 13:24 Creatine Kinase 609 H 1074 H CK-MB (CK-2) 10.00 H Troponin I 0.020 05/12/18 13:24 Creatine Kinase CK-MB (CK-2) 17.30 H Troponin I 0.031 Impressions: Chest X-Ray 05/11/18 22:28 IMPRESSION: No evidence of acute cardiopulmonary disease. Head CT 05/11/18 22:29 IMPRESSION: No acute intracranial findings. Chest CT 05/12/18 00:00 IMPRESSION: NO SIGNIFICANT FINDING ON NON-CONTRASTED CHEST CT. Assessment & Plan - Diagnosis (1) Dyspnea Qualifiers: Dyspnea type: unspecified Qualified Code(s): R06.00 - Dyspnea, unspecified Is this a current diagnosis for this admission?: Yes Plan: Currently all improving We will get the ambulatory without oxygen (2) Fever Qualifiers: Fever type: unspecified Qualified Code(s): R50.9 - Fever, unspecified Is this a current diagnosis for this admission?: Yes Plan: All resolved (3) Alcohol abuse Is this a current diagnosis for this admission?: Yes Plan: Put the patient on alcohol withdrawal protocol (4) BPH (benign prostatic hypertrophy) with urinary obstruction Is this a current diagnosis for this admission?: Yes (5) Chronic back pain Is this a current diagnosis for this admission?: Yes (6) Chronic kidney disease Qualifiers: Chronic kidney disease stage: stage 2 (mild) Is this a current diagnosis for this admission?: Yes Plan: Currently all improving (7) Chronic obstructive pulmonary disease Qualifiers: COPD type: unspecified COPD Is this a current diagnosis for this admission?: Yes Plan: DC the IV Solu-Medrol put the p.o. steroid (8) Impaired fasting glucose Is this a current diagnosis for this admission?: Yes (9) Posttraumatic stress disorder Is this a current diagnosis for this admission?: Yes (10) Coronary artery disease Qualifiers: Coronary Disease-Associated Artery/Lesion type: unspecified vessel or lesion type Is this a current diagnosis for this admission?: Yes Plan: [place] morel stable - Time Time Spent with patient: 15-24 minutes Medications reviewed and adjusted accordingly: Yes Anticipated discharge: Home Within: Other - Plan Summary Plan Summary: DC the IV Solu-Medrol Discussed with the patient to walk in the hallway if the patient is doing well does not require any oxygen hopefully discharge in the next 24 hours Patient's white count is elevated but afebrile we will get the lactic acid if the lactic acid is normal and white count is coming down hopefully discharge with the p.o. antibiotic Patient's wants to go home today will discuss with the patient's son
[2018-05-13] MEDS: CITALOPRAM HYDROBROMIDE 20 MG TABLET PO SCH (09:22)
[2018-05-13] MEDS: DOCUSATE SODIUM 100 MG CAPSULE PO SCH ×2 (09:23→17:30)
[2018-05-13] MEDS: LORATADINE 10 MG TABLET PO SCH (09:23)
[2018-05-13] MEDS: ASPIRIN 81 MG TABLET, ENT COATED PO SCH (09:24)
[2018-05-13] MEDS: CLONAZEPAM 1 MG TABLET PO SCH (09:25)
[2018-05-13] MEDS: ENOXAPARIN SODIUM INJ 40 MG/0.4 ML DISP.SYRIN SUBCUT SCH (09:27)
[2018-05-13] MEDS: CLOPIDOGREL BISULFATE 75 MG TABLET PO SCH (09:28)
[2018-05-13] MEDS: THIAMINE HCL 100 MG TABLET PO SCH (09:28)
[2018-05-13] MEDS: AMLODIPINE BESYLATE 5 MG TABLET PO SCH ×3 (09:30→21:39)
[2018-05-13] MEDS: METOPROLOL SUCCINATE 50 MG TAB.SR.24H PO SCH (09:31)
[2018-05-13] MEDS: CEFEPIME 1 GM/D5W RTU 1 GM/50 ML RTUPB IV SCH ×2 (09:32→21:39)
[2018-05-13] MEDS: OSELTAMIVIR PHOSPHATE 75 MG CAPSULE PO SCH ×2 (09:34→17:30)
[2018-05-13] MEDS: TIOTROPIUM BROMIDE DPI 5 CAP/KIT (18 MCG/CAP) IH SCH (09:41)
[2018-05-13] MEDS: PREDNISONE 10 MG TABLET PO SCH ×2 (09:41→17:30)
[2018-05-13] MEDS: BUDESONIDE/FORMOTEROL 160-4.5 MCG 60 PUFF/6 GM MDI IH SCH ×2 (09:43→21:39)
[2018-05-13] MEDS ORDERED: PREDNISONE 20 MG TABLET PO SCH ×2 (10:00)
[2018-05-13] MEDS: ATORVASTATIN CALCIUM 80 MG TABLET PO SCH (21:39)
[2018-05-14] MEDS: IPRATROPIUM/ALBUTEROL 0.5-2.5 MG/3 ML AMPUL NEB SCH ×2 (00:12→03:35)
[2018-05-14] MEDS: LANSOPRAZOLE 30 MG TAB.RAP.DR PO SCH (05:07)
[2018-05-14 05:58] LABS: MEAN CORPUSCULAR HEMOGLOBIN 33.2 pg (27.0-33.4); MEAN CORPUSCULAR HGB CONC 34.2 g/dL (32.0-36.0); MEAN CORPUSCULAR VOLUME 97 fl (80-97); PLATELET COUNT 148 10^3/uL (150-450); RED BLOOD COUNT 3.92 10^6/uL (4.35-5.55); RED CELL DISTRIBUTION WIDTH 14.5 % (11.5-14.0); WHITE BLOOD COUNT 28.8 10^3/uL (4.0-10.5)
[2018-05-14 06:15] LABS: ANION GAP 7 (5-19); BLOOD UREA NITROGEN 26 mg/dL (7-20); CALCIUM 8.8 mg/dL (8.4-10.2); CARBON DIOXIDE 25 mmol/L (22-30); CHLORIDE 106 mmol/L (98-107); GLUCOSE 100 mg/dL (75-110); POTASSIUM 3.8 mmol/L (3.6-5.0)
[2018-05-14 06:55] LABS: ABSOLUTE LYMPHOCYTES# (MANUAL) 0.3 10^3/uL (0.5-4.7); ABSOLUTE MONOCYTES # (MANUAL) 1.4 10^3/uL (0.1-1.4); ABSOLUTE NEUTROPHILS# (MANUAL) 27.1 10^3/uL (1.7-8.2); BASOPHILS % (MANUAL) 0 % (0-2); EOSINOPHILS % (MANUAL) 0 % (0-6); LYMPHOCYTES % (MANUAL) 1 % (13-45); MONOCYTES % (MANUAL) 5 % (3-13); SEGMENTED NEUTROPHILS % (MAN) 94 % (42-78); TOTAL CELLS COUNTED 100
[2018-05-14 06:58] LABS: ANISOCYTOSIS SLIGHT; PLATELET COMMENT DECREASED; POLYCHROMASIA SLIGHT; TOXIC GRANULATION SLIGHT; TOXIC VACUOLATION PRESENT
[2018-05-14] MEDS: HYDRALAZINE HCL INJ/PF 20 MG/1 ML SDV IV PRN (08:16)
--- NOTE | 2018-05-14 08:19 | PDOC PROGRESS REPORT ---
Subjective Progress Note for:: 05/14/18 Subjective:: Patient is currently doing well Patient is denied any chest pain denied any shortness of the breath Patient's white count is still elevated No fever no chills Patient's wants to go home Discussed with the son regarding the patient's current conditions with still elevated white count may possible infectious versus steroid not sure Patients may be get a benefit to stay in the hospital for another day but patients wants to go home Reason For Visit: COPD ACUTE Physical Exam Vital Signs: Temp Pulse Resp BP Pulse Ox 98.1 F 81 17 152/86 H 96 05/14/18 03:29 05/14/18 03:36 05/14/18 03:36 05/14/18 03:29 05/14/18 03:36 Intake & Output 05/13/18 05/14/18 05/15/18 06:59 06:59 06:59 Intake Total 1737 1100 Output Total 1000 825 Balance 737 275 Weight 122.4 kg 121.1 kg General appearance: PRESENT: no acute distress, well-developed, well-nourished Head exam: PRESENT: atraumatic, normocephalic Eye exam: PRESENT: conjunctiva pink, EOMI, PERRLA. ABSENT: scleral icterus Ear exam: PRESENT: normal external ear exam Mouth exam: PRESENT: moist, tongue midline Neck exam: PRESENT: full ROM. ABSENT: carotid bruit, JVD, lymphadenopathy, thyromegaly Cardiovascular exam: PRESENT: RRR. ABSENT: diastolic murmur, rubs, systolic murmur Vascular exam: PRESENT: normal capillary refill GI/Abdominal exam: PRESENT: normal bowel sounds, soft. ABSENT: distended, guarding, mass, organolmegaly, rebound, tenderness Rectal exam: PRESENT: deferred Musculoskeletal exam: PRESENT: ambulatory Neurological exam: PRESENT: alert, awake, oriented to person, oriented to place, oriented to time, oriented to situation, CN II-XII grossly intact. ABSENT: motor sensory deficit Psychiatric exam: PRESENT: appropriate affect, normal mood. ABSENT: homicidal ideation, suicidal ideation Skin exam: PRESENT: dry, intact, warm. ABSENT: cyanosis, rash Results Laboratory Results: 05/14/18 05:38 05/14/18 05:38 05/13/18 05/13/18 05/14/18 08:29 13:27 05:38 WBC 28.8 H RBC 3.92 L Hgb 13.0 L Hct 38.0 MCV 97 MCH 33.2 MCHC 34.2 RDW 14.5 H Plt Count 148 L Seg Neutrophils % Not Reportable Lymphocytes % Not Reportable Monocytes % Not Reportable Eosinophils % Not Reportable Basophils % Not Reportable Absolute Neutrophils Not Reportable Absolute Lymphocytes Not Reportable Absolute Monocytes Not Reportable Absolute Eosinophils Not Reportable Absolute Basophils Not Reportable Sodium Potassium Chloride Carbon Dioxide Anion Gap BUN Creatinine Est GFR ( Amer) Est GFR (Non-Af Amer) Glucose Lactic Acid 3.3 H 2.2 H Calcium 05/14/18 05:38 WBC RBC Hgb Hct MCV MCH MCHC RDW Plt Count Seg Neutrophils % Lymphocytes % Monocytes % Eosinophils % Basophils % Absolute Neutrophils Absolute Lymphocytes Absolute Monocytes Absolute Eosinophils Absolute Basophils Sodium 138.0 Potassium 3.8 Chloride 106 Carbon Dioxide 25 Anion Gap 7 BUN 26 H Creatinine 1.03 Est GFR ( Amer) > 60 Est GFR (Non-Af Amer) > 60 Glucose 100 Lactic Acid Calcium 8.8 05/12/18 02:00 Clean Catch Midstream Urine Culture - Final 3,000 col/ml 05/11/18 05/12/18 05/12/18 22:30 02:00 02:00 Creatine Kinase 801 H CK-MB (CK-2) 10.20 H Troponin I 0.013 0.018 05/12/18 05/12/18 05/12/18 07:01 07:01 13:24 Creatine Kinase 609 H 1074 H CK-MB (CK-2) 10.00 H Troponin I 0.020 05/12/18 13:24 Creatine Kinase CK-MB (CK-2) 17.30 H Troponin I 0.031 Impressions: Chest X-Ray 05/11/18 22:28 IMPRESSION: No evidence of acute cardiopulmonary disease. Head CT 05/11/18 22:29 IMPRESSION: No acute intracranial findings. Chest CT 05/12/18 00:00 IMPRESSION: NO SIGNIFICANT FINDING ON NON-CONTRASTED CHEST CT. Assessment & Plan - Diagnosis (1) Dyspnea Qualifiers: Dyspnea type: unspecified Qualified Code(s): R06.00 - Dyspnea, unspecified Is this a current diagnosis for this admission?: Yes Plan: Currently all resolved (2) Fever Qualifiers: Fever type: unspecified Qualified Code(s): R50.9 - Fever, unspecified Is this a current diagnosis for this admission?: Yes Plan: Currently all resolved (3) Alcohol abuse Is this a current diagnosis for this admission?: Yes Plan: Put the patient on alcohol withdrawal protocol (4) BPH (benign prostatic hypertrophy) with urinary obstruction Is this a current diagnosis for this admission?: Yes (5) Chronic back pain Is this a current diagnosis for this admission?: Yes (6) Chronic kidney disease Qualifiers: Chronic kidney disease stage: stage 2 (mild) Is this a current diagnosis for this admission?: Yes Plan: [place] all stable (7) Chronic obstructive pulmonary disease Qualifiers: COPD type: unspecified COPD Is this a current diagnosis for this admission?: Yes Plan: a current medications (8) Impaired fasting glucose Is this a current diagnosis for this admission?: Yes (9) Posttraumatic stress disorder Is this a current diagnosis for this admission?: Yes (10) Coronary artery disease Qualifiers: Coronary Disease-Associated Artery/Lesion type: unspecified vessel or lesion type Is this a current diagnosis for this admission?: Yes - Time Time Spent with patient: 15-24 minutes Medications reviewed and adjusted accordingly: Yes Anticipated discharge: Home Within: within 24 hours - Plan Summary Plan Summary: Discussed with the patient and the son regarding the current conditions concern about to continue to stay in the hospital for further IV antibiotic until the blood count is getting better Patient at this point do not want to stay in the hospital Discussed with the son he is going to talk to the patient
[2018-05-14 08:24] VITALS: BP 186/85
--- NOTE | 2018-05-14 17:19 | PDOC DISCHARGE SUMMARY ---
General - Admit/Disc Date/PCP Admission Date/Primary Care Provider: 05/12/18 01:31 IRVING STEVE MD Discharge Date: 05/14/18 - Discharge Diagnosis (1) Dyspnea Is this a current diagnosis for this admission?: Yes Summary: Clear all improving (2) Fever Is this a current diagnosis for this admission?: Yes Summary: All resolved (3) Alcohol abuse Is this a current diagnosis for this admission?: Yes (4) BPH (benign prostatic hypertrophy) with urinary obstruction Is this a current diagnosis for this admission?: Yes (5) Chronic back pain Is this a current diagnosis for this admission?: Yes (6) Chronic kidney disease Is this a current diagnosis for this admission?: Yes Summary: Currently all stable (7) Chronic obstructive pulmonary disease Is this a current diagnosis for this admission?: Yes Summary: Use inhaler and nebulizer treatment (8) Impaired fasting glucose Is this a current diagnosis for this admission?: Yes Summary: All stable (9) Posttraumatic stress disorder Is this a current diagnosis for this admission?: Yes Summary: Patients follow with the psych (10) Coronary artery disease Is this a current diagnosis for this admission?: Yes Summary: Currently all stable (11) Leukocytosis Is this a current diagnosis for this admission?: Yes Summary: Possible most likely from the steroid Continues the antibiotic Lactic acid is 1.6 - Additional Information Resuscitation Status: Full Code Discharge Diet: Regular Discharge Activity: Activity As Tolerated Prescriptions: Amlodipine Besylate [Norvasc 5 mg Tablet] 5 mg PO DAILY #30 tablet Cefdinir [Omnicef 300 mg Capsule] 1 cap PO BID #14 capsule Oseltamivir Phosphate [Tamiflu 75 mg Capsule] 75 mg PO BID #6 capsule Prednisone 10 mg PO BID #10 tab.ds.pk Thiamine HCl [Thiamine 100 mg Tablet] 100 mg PO DAILY #30 tablet Home Medications: Aspirin [Aspirin EC] 81 mg PO DAILY 08/22/17 Atorvastatin Calcium [Lipitor 80 mg Tablet] 80 mg PO QHS 08/22/17 Budesonide/Formoterol Fumarate [Symbicort HFA 160-4.5 mcg Inhaler 6 gm] 2 puff IH Q12 08/22/17 Citalopram Hydrobromide [Celexa 40 mg Tablet] 60 mg PO DAILY 08/22/17 Clonazepam [Klonopin 2 mg Tablet] 2 mg PO DAILY 08/22/17 Clopidogrel Bisulfate [Clopidogrel] 75 mg PO DAILY 08/22/17 Fexofenadine HCl 180 mg PO DAILY 08/22/17 Metoprolol Succinate [Toprol XL 200 mg Tablet] 100 mg PO DAILY 08/22/17 Pantoprazole Sodium [Protonix] 40 mg PO Q6AM 08/22/17 Tiotropium [place] [Spiriva Respimat] 2 puff IH DAILY 08/22/17 Trazodone HCl [Desyrel] 100 mg PO HSP PRN 08/22/17 Amlodipine Besylate [Norvasc 5 mg Tablet] 5 mg PO DAILY #30 tablet 05/13/18 Cefdinir [Omnicef 300 mg Capsule] 1 cap PO BID #14 capsule 05/13/18 Oseltamivir Phosphate [Tamiflu 75 mg Capsule] 75 mg PO BID #6 capsule 05/13/18 Prednisone 10 mg PO BID #10 tab.ds.pk 05/13/18 Thiamine HCl [Thiamine 100 mg Tablet] 100 mg PO DAILY #30 tablet 05/13/18 History of Present Illness History of Present Illness: BHARAT WALLACE JR is a 77 year old male 77-year-old male with a history of the COPD history of the coronary artery disease status post stent placement history of the impaired fasting glucose history of alcoholism and multiple other comorbidity was drinking at the bar yesterday and the patient suddenly feel pass out but did not pass out and patient's was brought to the emergency department with the patient initial workup included a head CT was negative but patient has significant wheezing and COPD acute exacerbations and ER physicians called to admit the patient's Patient is received IV Solu-Medrol and also the Tamiflu because of the flulike symptoms given the flu test is negative Patient's when I saw in the ER denied any chest pain Patient denied any smoking history Patient currently see the [facility] cardiology status post stent placement in 2016 Patient continues to drink alcohol every day Patient denied any headache Hospital Course Hospital Course: This is a 77-year-old male admitting in the hospital for the shortness of the breath and COPD acute exacerbations patient was treated with the IV antibiotic steroids and also Tamiflu for possible flulike symptoms Since response very well with the treatments patients remain afebrile Patient on IV steroids switch to the p.o. steroid Patient's white count was elevated most likely due to the steroid effect Discussed with the patient regarding to staying in the hospital until the 48 hours why the white count is coming down to make sure that patient does not have any infections while all culture is stable but patients do not want to stay in the hospital wants to go Discussed with the son regarding the patient's concern to going home and all the test reports and possible complications for the sepsis and catastrophic event Patient understand and the son understand very well We will still give a prescription as of the patient's of the antibiotic Discussed with the patient and the son if it is a fever any chills any short of breath come to the emergency department Walking the hallway without any oxygen's Patient's p.o. intake is good Physical Exam Vital Signs: Temp Pulse Resp BP Pulse Ox 98.1 F 87 18 186/85 H 96 05/14/18 03:29 05/14/18 07:19 05/14/18 07:19 05/14/18 07:19 05/14/18 07:19 Intake & Output 05/13/18 05/14/18 05/15/18 06:59 06:59 06:59 Intake Total 1737 1100 Output Total 1000 825 Balance 737 275 Weight 122.4 kg 121.1 kg General appearance: PRESENT: no acute distress, well-developed, well-nourished Head exam: PRESENT: atraumatic, normocephalic Eye exam: PRESENT: conjunctiva pink, EOMI, PERRLA. ABSENT: scleral icterus Ear exam: PRESENT: normal external ear exam Mouth exam: PRESENT: moist, tongue midline Neck exam: PRESENT: full ROM. ABSENT: carotid bruit, JVD, lymphadenopathy, thyromegaly Respiratory exam: PRESENT: clear to auscultation beatrice Cardiovascular exam: PRESENT: RRR. ABSENT: diastolic murmur, rubs, systolic murmur Vascular exam: PRESENT: normal capillary refill GI/Abdominal exam: PRESENT: normal bowel sounds, soft. ABSENT: distended, guarding, mass, organolmegaly, rebound, tenderness Rectal exam: PRESENT: deferred Musculoskeletal exam: PRESENT: ambulatory Neurological exam: PRESENT: alert, awake, oriented to person, oriented to place, oriented to time, oriented to situation, CN II-XII grossly intact. ABSENT: motor sensory deficit Psychiatric exam: PRESENT: appropriate affect, normal mood. ABSENT: homicidal ideation, suicidal ideation Skin exam: PRESENT: dry, intact, warm. ABSENT: cyanosis, rash Results Laboratory Results: 05/14/18 05:38 05/14/18 05:38 05/14/18 05/14/18 05/14/18 05:38 05:38 08:28 WBC 28.8 H RBC 3.92 L Hgb 13.0 L Hct 38.0 MCV 97 MCH 33.2 MCHC 34.2 RDW 14.5 H Plt Count 148 L Seg Neutrophils % Not Reportable Lymphocytes % Not Reportable Monocytes % Not Reportable Eosinophils % Not Reportable Basophils % Not Reportable Absolute Neutrophils Not Reportable Absolute Lymphocytes Not Reportable Absolute Monocytes Not Reportable Absolute Eosinophils Not Reportable Absolute Basophils Not Reportable Sodium 138.0 Potassium 3.8 Chloride 106 Carbon Dioxide 25 Anion Gap 7 BUN 26 H Creatinine 1.03 Est GFR ( Amer) > 60 Est GFR (Non-Af Amer) > 60 Glucose 100 Lactic Acid 1.6 Calcium 8.8 05/11/18 05/12/18 05/12/18 22:30 02:00 02:00 Creatine Kinase 801 H CK-MB (CK-2) 10.20 H Troponin I 0.013 0.018 05/12/18 05/12/18 05/12/18 07:01 07:01 13:24 Creatine Kinase 609 H 1074 H CK-MB (CK-2) 10.00 H Troponin I 0.020 05/12/18 13:24 Creatine Kinase CK-MB (CK-2) 17.30 H Troponin I 0.031 Impressions: Chest X-Ray 05/11/18 22:28 IMPRESSION: No evidence of acute cardiopulmonary disease. Head CT 05/11/18 22:29 IMPRESSION: No acute intracranial findings. Chest CT 05/12/18 00:00 IMPRESSION: NO SIGNIFICANT FINDING ON NON-CONTRASTED CHEST CT. Qualifiers - * PATIENT BEING DISCHARGED WITH ANY OF THE FOLLOWING DIAGNOSIS: No VTE patient discharged on overlapping Therapy?: Yes Plan Time Spent: Greater than 30 Minutes - Follow in office in 1 week Patients pretty much do not want to stay in the hospital Repeat the CBC and Chem-7 in 1 week
== END 2018-05-14 08:34 | disposition left against medical advice (07) | DRG 192 ==
LOC: ER 22:14 → EH 05-12 01:31 → OBSVTOIN 05-12 01:31 → 3S 05-12 13:31
PROVIDERS: ADMIT Family Medicine; ATTEND Family Medicine
DX: J44.1 Chronic obstructive pulmonary disease with (acute) exacerbation (principal); I25.10 Atherosclerotic heart disease of native coronary artery without angina pectoris; E78.5 Hyperlipidemia, unspecified; K21.9 Gastro-esophageal reflux disease without esophagitis; I12.9 Hypertensive chronic kidney disease with stage 1 through stage 4 chronic kidney disease, or unspecified chronic kidney disease; N18.2 Chronic kidney disease, stage 2 (mild); F10.10 Alcohol abuse, uncomplicated; Y90.0 Blood alcohol level of less than 20 mg/100 ml; N40.0 Benign prostatic hyperplasia without lower urinary tract symptoms; M54.9 Dorsalgia, unspecified; F43.10 Post-traumatic stress disorder, unspecified; R73.01 Impaired fasting glucose; Z87.891 Personal history of nicotine dependence; Z95.5 Presence of coronary angioplasty implant and graft; Z79.82 Long term (current) use of aspirin; Z79.51 Long term (current) use of inhaled steroids; Z79.899 Other long term (current) drug therapy
CPT/HCPCS: 36415; 70450; 71045; 71250; 80048; 80053; 80307; 82550; 82553; 82803; 83605; 84484; 85025; 87040; 87070; 87077; 87086; 87186; 87205; 87804; 93005; 93010; 94640; 96365; 96366; 96367; 96375; 99285; J0360; J0692; J1650; J2920; J3475; J3490; J7030; J7040; J7512; J7620

== ENCOUNTER → 2018-09-02 | Outpatient (CLI) | payer MEDICARE, OTHER ==
[2018-09-02 17:36] LABS: ANION GAP 10 (5-19); BLOOD UREA NITROGEN 18 mg/dL (7-20); CALCIUM 9.5 mg/dL (8.4-10.2); CARBON DIOXIDE 30 mmol/L (22-30); CHLORIDE 98 mmol/L (98-107); GLUCOSE 90 mg/dL (75-110); POTASSIUM 4.6 mmol/L (3.6-5.0); SODIUM 137.9 mmol/L (137-145)
== END ==
LOC: OD 15:47
PROVIDERS: ATTEND Family Medicine
DX: E87.5 Hyperkalemia (principal)
CPT/HCPCS: 36415; 80048

== ENCOUNTER → 2019-03-05 | Outpatient (CLI) | payer MEDICARE, OTHER ==
--- NOTE | 2019-03-05 13:38 | RADIOLOGY REPORT (SQ) ---
EXAM DESCRIPTION: KNEE RIGHT 4 VIEWS COMPLETED DATE/TIME: 03/05/2019 1:16 pm REASON FOR STUDY: PAIN M25.561 PAIN IN RIGHT KNEE COMPARISON: 03/07/2014 NUMBER OF VIEWS: Four views. TECHNIQUE: AP, lateral, and both oblique radiographic images acquired of the right knee. LIMITATIONS: None. FINDINGS: MINERALIZATION: Normal. BONES: No acute fracture dislocation. 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 There is multiple corticated ossific fragments superior to the patella. JOINT: Moderate joint effusion. Increased lucency in the suprapatellar joint space. No distal SOFT TISSUES: Vascular calcification. Multiple metallic foreign bodies overlying the leg, stable. OTHER: No other significant finding. IMPRESSION: 1. No acute bony abnormality. 2. Moderate joint effusion with increased lucency in the suprapatellar joint space on a single proje ction favored to be artifactual. Additional considerations include gas or fat within the joint space . Recommend correlation with recent intervention. 3. Soft tissue swelling and heterotopic ossification correspond to the area of soft tissue abnormali ty superior to the patella. TECHNICAL DOCUMENTATION: JOB ID: [id number] [employer]- All Rights Reserved Reading location - IP/workstation name: [email or web address]
== END ==
LOC: OD 12:44
PROVIDERS: ATTEND Family Medicine
DX: M25.461 Effusion, right knee (principal); M25.561 Pain in right knee

== ENCOUNTER → 2019-03-12 | Outpatient (CLI) | payer MEDICARE, OTHER ==
--- NOTE | 2019-03-12 12:44 | RADIOLOGY REPORT (SQ) ---
EXAM DESCRIPTION: CHEST PA/LATERAL COMPLETED DATE/TIME: 03/12/2019 12:12 pm REASON FOR STUDY: COUGH COMPARISON: 05/11/2018 EXAM PARAMETERS: NUMBER OF VIEWS: two views TECHNIQUE: Digital Frontal and Lateral radiographic views of the chest acquired. RADIATION DOSE: NA LIMITATIONS: none FINDINGS: LUNGS AND PLEURA: Stable bilateral pleural thickening. No consolidation or effusion. No pneumothorax. MEDIASTINUM AND HILAR STRUCTURES: No masses or contour abnormalities. HEART AND VASCULAR STRUCTURES: Heart normal size. No evidence for failure. BONES: No acute findings. HARDWARE: None in the chest. OTHER: No other significant finding. IMPRESSION: Stable bilateral pleural thickening. No acute findings. TECHNICAL DOCUMENTATION: JOB ID: [id number] [employer]- All Rights Reserved Reading location - IP/workstation name: [email or web address]
== END ==
LOC: OD 11:51
PROVIDERS: ATTEND Family Medicine
DX: J92.9 Pleural plaque without asbestos (principal); R05 Cough
CPT/HCPCS: 71046

== ENCOUNTER 2019-09-03 11:45 | Day surgery (SDC) | payer MEDICARE, OTHER ==
[~2019-09-03 11:45] MED LIST: PROPOFOL INJ 200 MG/20 ML VIAL IV ONE
[2019-09-03 12:44] LABS: INTERNATIONAL RATION (INR) 1.11; PROTHROMBIN TIME 14.3 SEC (11.4-15.4)
[2019-09-03 12:45] LABS: PARTIAL THROMBOPLASTIN TIME 28.9 SEC (23.5-35.8)
[2019-09-03] MEDS ORDERED: PROPOFOL INJ 200 MG/20 ML VIAL IV ONE (13:52)
[2019-09-03] MEDS ORDERED: LIDOCAINE 2% INJ-PF (20 MG/ML) 10 ML AMPUL ONE (14:00)
[2019-09-03] MEDS ORDERED: EPINEPHRINE INJ/PF 1 MG/1 ML AMPULE ONE (14:18)
--- NOTE | 2019-09-03 14:46 | Operative Report ---
Operative Report DATE OF SURGERY: 09/03/19 Operative Report: Pre-op diagnosis: History of gastric polyp and iron deficiency anemia Post-op diagnosis: Gastric cardia polyp Surgery: Esophagogastroduodenoscopy with epinephrine injection, polypectomy, and Endo Clip placement Medications: As per anesthesia Tissue removed: None Procedure: After informed consent obtained from patient, the throat was sprayed with Hurricane and conscious sedation was achieved. The upper endoscope was inserted into the esophagus under direct vision and advanced into the stomach. The duodenum was entered and examined to the second part. A 15 mm pedunculated polyp was identified in the gastric cardia with a superficial ulceration. The base of the polyp was injected with epinephrine 1 in 10,000. The polyp was then completely removed with a hot snare. 2 endoclips were placed to close the polypectomy site. Endoscope was then slowly pulled out of the patient as the mucosa was examined into details. Patient tolerated procedure well. Findings Esophagus: Normal Antrum: Normal Cardia: A 15 mm polyp was removed as described above Body: Normal Fundus: Normal Duodenum first part: Normal Duodenum second part: Normal Plan: Await pathology. Continue baby aspirin and resume Plavix in 2 days. OPERATION: .
[2019-09-03 17:27] VITALS: BP 157/87
== END 2019-09-03 15:55 | disposition home or self-care (01) ==
LOC: OROUT 11:45
PROVIDERS: ATTEND Internal Medicine Gastroenterology
DX: D13.1 Benign neoplasm of stomach (principal); Z13.810 Encounter for screening for upper gastrointestinal disorder; Z79.01 Long term (current) use of anticoagulants; Z79.82 Long term (current) use of aspirin; Z79.899 Other long term (current) drug therapy; I10 Essential (primary) hypertension; Z85.038 Personal history of other malignant neoplasm of large intestine; E78.5 Hyperlipidemia, unspecified; I25.2 Old myocardial infarction; D53.9 Nutritional anemia, unspecified; K21.9 Gastro-esophageal reflux disease without esophagitis; K22.70 Barrett's esophagus without dysplasia; Z03.818 Encounter for observation for suspected exposure to other biological agents ruled out
CPT/HCPCS: 43236; 43251; 36415; 85610; 85730; 88342 ×2; 88305 ×2; 00731; U0003; J0171; J2704; J3490; C9803; 731; 87635

== ENCOUNTER → 2019-09-13 | Outpatient (CLI) | payer MEDICARE, OTHER ==
[2019-09-13 13:39] LABS: ABSOLUTE BASOPHILS # (AUTO) 0.1 10^3/uL (0.0-0.2); ABSOLUTE EOSINOPHILS # (AUTO) 0.3 10^3/uL (0.0-0.6); ABSOLUTE LYMPHOCYTES (AUTO) 1.2 10^3/uL (0.5-4.7); ABSOLUTE MONOCYTES (AUTO) 0.7 10^3/uL (0.1-1.4); EOSINOPHILS % (AUTO) 3.7 % (0-6); HEMATOCRIT 35.3 % (37.9-51.0); HEMOGLOBIN 11.9 g/dL (13.5-17.0); LYMPHOCYTES % (AUTO) 14.1 % (13-45); MEAN CORPUSCULAR HEMOGLOBIN 32.4 pg (27.0-33.4); MEAN CORPUSCULAR HGB CONC 33.8 g/dL (32.0-36.0); MEAN CORPUSCULAR VOLUME 96 fl (80-97); MONOCYTES % (AUTO) 8.7 % (3-13); PLATELET COUNT 228 10^3/uL (150-450); RED BLOOD COUNT 3.68 10^6/uL (4.35-5.55); RED CELL DISTRIBUTION WIDTH 23.2 % (11.5-14.0); SEGMENTED NEUTROPHILS % (AUTO) 72.5 % (42-78); TOTAL CELLS COUNTED % (AUTO) 100 %; WHITE BLOOD COUNT 8.2 10^3/uL (4.0-10.5)
[2019-09-13 13:52] LABS: INTERNATIONAL RATION (INR) 1.04; PROTHROMBIN TIME 13.6 SEC (11.4-15.4)
[2019-09-13 14:04] LABS: ANION GAP 5 (5-19); BLOOD UREA NITROGEN 18 mg/dL (7-20); CALCIUM 9.2 mg/dL (8.4-10.2); CARBON DIOXIDE 27 mmol/L (22-30); CHLORIDE 104 mmol/L (98-107); GLUCOSE 109 mg/dL (75-110); POTASSIUM 4.8 mmol/L (3.6-5.0)
== END ==
LOC: OD 12:11
PROVIDERS: ATTEND Internal Medicine Interventional Cardiology
DX: I25.10 Atherosclerotic heart disease of native coronary artery without angina pectoris (principal)
CPT/HCPCS: 36415; 80048; 83735; 85025; 85610